=== PATIENT | female | born 1940 | race Caucasian/White ===

== ENCOUNTER → 2023-11-27 09:11 | Outpatient (REF) | payer MEDICARE, SELFPAY | LOC: RCS 09:11 | PROVIDERS: ATTENDING PHYSICIAN Internal Medicine Cardiovascular Disease; FAMILY PHYSICIAN Nurse Practitioner Primary Care | DX: I35.1 Nonrheumatic aortic (valve) insufficiency (principal) | CPT/HCPCS: 93306 ==

== ENCOUNTER → 2024-01-30 09:41 | Outpatient (REF) | payer MEDICARE, SELFPAY | LOC: RAD 09:41 | PROVIDERS: ATTENDING PHYSICIAN Internal Medicine Endocrinology, Diabetes & Metabolism; FAMILY PHYSICIAN Nurse Practitioner Primary Care | DX: E04.2 Nontoxic multinodular goiter (principal) | CPT/HCPCS: 76536 ==

== ENCOUNTER → 2024-03-05 08:50 | Outpatient (REF) | payer MEDICARE, SELFPAY ==
[2024-03-05 09:40] VITALS: BMI 26.3
[2024-03-05 10:33] LABS: Hematocrit 44.9 % (37.0-47.0); Hemoglobin 14.3 g/dL (12.0-16.0); Mean Corp Hgb Conc. 31.8 g/dL (33.0-37.0); Mean Corpuscular Hgb 25.8 pg (27.0-31.0); Platelet Count 233 10^3/uL (130-400); Red Blood Cell Count 5.54 10^6/uL (4.20-5.40); Red Cell Dist. Width 20.4 % (11.5-14.5); White Blood Cell Count 8.3 10^3/uL (4.8-10.8)
[2024-03-05 10:54] LABS: Glycohemoglobin (HgbA1c) 5.3 % (4.0-5.6)
[2024-03-05 11:15] LABS: ALT (SGPT) 37 U/L (0-35); AST (SGOT) 44 U/L (14-36); Albumin 4.2 g/dl (3.5-5.0); Alkaline Phosphatase 175 U/L (38-126); Blood Urea Nitrogen 14 mg/dl (7-17); Calcium 9.3 mg/dl (8.4-10.2); Carbon Dioxide 30 mmol/L (22-30); Chloride 95 mmol/L (98-107); Estimated Creatinine Clearance 47 ml/min; Glucose 86 mg/dl (70-99); Potassium 4.3 mmol/L (3.5-5.1); Sodium 137 mmol/L (135-145); Total Bilirubin 0.3 mg/dl (0.2-1.3); Total Protein 6.7 g/dl (6.3-8.2); eGFR > 60.00
== END ==
LOC: REG 08:50
PROVIDERS: ATTENDING PHYSICIAN Orthopaedic Surgery; FAMILY PHYSICIAN Internal Medicine Geriatric Medicine; REFERRING PHYSICIAN Internal Medicine Cardiovascular Disease
DX: I08.2 Rheumatic disorders of both aortic and tricuspid valves (principal); Z01.818 Encounter for other preprocedural examination
CPT/HCPCS: 36415; 80053; 83036; 85027; 87070

== ENCOUNTER → 2024-03-09 10:06 | Outpatient (REF) | payer MEDICARE, SELFPAY | LOC: HWRCS 10:06 | PROVIDERS: ATTENDING PHYSICIAN Internal Medicine Cardiovascular Disease; FAMILY PHYSICIAN Nurse Practitioner Primary Care | DX: I11.9 Hypertensive heart disease without heart failure (principal); I49.1 Atrial premature depolarization | CPT/HCPCS: 93306 ==

== ENCOUNTER 2024-03-30 07:15 | Day surgery (SDC) | payer MEDICARE, SELFPAY ==
[2024-03-30] VITALS (12 sets, daily range): BP systolic 104–161; BP diastolic 57–76; BMI 22.6
[2024-03-30 08:40] LABS: INR 1.28; PT 15.8 Sec (11.4-14.6)
--- NOTE | 2024-03-30 10:11 | ITS.CL.CATH ---
[facility] - Catheterization
Cardiac Catheterization
Procedure Report:
LEFT HEART CATHETERIZATION
Date of Procedure: March 30, 2024
Referring: Dr. Nadeem Valenzuela
PROCEDURES:
1. Left heart catheterization with coronary angiography
INDICATION: Symptomatic aortic stenosis
ACCESS: Right radial artery, 6 Danish sheath
HEMODYNAMICS : (mmHg)
AO (s/d) : 130/66, 94
LV (s/d) : 175/16
LVEDP : 28
AORTIC VALVE:
Mean Gradient: 40 mmHg
CORONARY FINDINGS
DOMINANCE: Right
LEFT MAIN: Calcified 50% distal left main stenosis
LEFT ANTERIOR DESCENDING: The LAD is heavily calcified over its course. The LAD arises normally from the left main and runs in the anterior interventricular groove and has minor luminal irregularities over its course with no focal obstructive
stenosis
CIRCUMFLEX: The circumflex is heavily calcified and as an acute origin from the left main. The circumflex supplies a single large terminal obtuse marginal branch and only minor irregularities are noted
RIGHT CORONARY ARTERY: The right coronary artery is a dominant vessel with an eccentric calcified 60-65% proximal stenosis. The mid to distal RCA is calcified but free of significant obstructive stenosis. The PDA is widely patent. The
posterolateral branch is small.
VENTRICULOGRAPHY: Not done
RADIATION SUMMARY: Fluoro Time (min): 3.5, Dose (mGy): 248, DAP (Gy.cm2) : 20.8
Closure Device: TR band
CONCLUSIONS
1. Severe symptomatic aortic stenosis with mean aortic valve gradient of 40 mmHg
2. Three-vessel coronary calcification with moderate distal left main and proximal RCA stenosis
RECOMMENDATIONS
1. Proceed with TAVR CT and we will discuss at an upcoming valve clinic meeting. I suspect we should proceed with TAVR as coronary anatomy has angiographically moderate / noncritical coronary disease
2. 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
Copy to: Dr. Nadeem Valenzuela
[2024-03-30] MEDS: TYLENOL 650 MG PO (10:36)
--- NOTE | 2024-03-30 13:48 | CONSULT.STRU ---
Consultation
-
Date/Time Consultation Requested: 03/30/2024
Date/Time Consultation Performed: 03/30/2024
Requesting Provider: Dr. Nadeem Agosto
Performing Provider: JENNIFER Fontenot
Reason for Consultation: Aortic stenosis/ TAVR evaluation
Patient History
Physicians
Family Physician: Genna Hutchinson NP
Outpatient Channel Sales Director: Chasidy
Primary Channel Sales Director: Chasidy
History of Present Illness
Patient is a 83yo female with known history of aortic stenosis. She is here today for cardiac catheterization as part of her evaluation process for TAVR. Her daughters state that she is 'slowing down'. 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
She is also a W[employer]. Pre-procedure discussion regarding blood and blood products will have to take place. She denies anginal symptoms, orthopnea, PND. She does note occasional LE edema. Her echocardiogram on 03/09 was notable for severe
with PG/M/43, FLACO: 0.7, Nild to moderate AI, mild MR, mild to moderate TR, EF 60-65%. Cardiac cath today demonstrates calcified 50% distal left main disease and 60-65% proximal stenosis of the RCA.
Reviewed the pathophysiology of aortic stenosis with the patient and her daughters. Explained the treatment options of SAVR and TAVR. Explained the TAVR evaluation process including follow up BMP, CT TAVR scan, CT surgery consult and Heart Team
discussion. Provided with script for BMP next week, script and appointment for CT TAVR, Consult appointment with Dr. De Luna and a copy of the TAVR education booklet with contact information. Allowed for and answered questions.
Past Medical History
Past Medical History: CAD, Cancer (Uterine), Covid-19 (01/2024), CVA/TIA (2022), GERD, HTN, Hypercholesterolemia, Hypothyroidism, Valvular Disease (Mild MR, Severe , mild-moderate AI, mild to moderate TR) and Other (seizures, DVT with h/o PE
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
Past Surgical History
Past Surgical History: Hysterectomy (w/BSO) and Other (left kidney surgery, right rotator cuff repair, bilateral lumpectomy, right knee surgery, abdominal hernia repair with mesh, left inguinal hernia with mesh)
Dental History
Dr. Montenegro in [place]. Has not seen dentist in several years. Aware she will need clearance prior to TAVR.
Family History
Mother: at Age and Cause of (unterine cancer)
Father: at Age and Cause of (CAD)
Social History
Alcohol: None
Drug: None
Tobacco: Non-Smoker
Personal:
Living: With Spouse
Allergies
Allergy/AdvReac Type Severity Reaction Status Date / Time
cortisone Allergy Severe Hives, Verified 03/30/24 08:25
constricted
throat
grass pollen Allergy Severe ear Verified 03/30/24 08:25
closing,
SOB,
congestion
penicillin G Allergy Severe Hives Verified 03/30/24 08:30
pollen extracts Allergy Severe ear Verified 03/30/24 08:30
closing,
SOB,
congestion
Sulfa (Sulfonamide Allergy Severe Unknown Verified 03/30/24 08:30
Antibiotics)
tropicamide Allergy Severe Unknown Verified 03/30/24 08:30
chamomile flower AdvReac Severe Nausea/vomi Verified 03/30/24 08:30
ting
codeine AdvReac Severe Mental Verified 03/30/24 08:31
status
change
diphenhydramine AdvReac Severe Mental Verified 03/30/24 08:30
status
change
Echinacea AdvReac Severe Nausea/vomi Verified 03/30/24 08:31
ting
epinephrine AdvReac Severe Tachycardia, Verified 03/30/24 08:30
hypotension
epin Allergy Severe effects Uncoded 03/30/24 08:28
heart
Home Medications
�Medication �Instructions �Recorded �Confirmed �Type
aspirin 81 mg tablet,delayed 81 mg PO DAILY Blood clot 09/04/20 03/30/24 History
release prevention/tx
levothyroxine 112 mcg tablet 112 mcg PO DAILY Thyroid 09/04/20 03/30/24 History
rosuvastatin 40 mg tablet (Crestor) 40 mg PO QPM High cholesterol 09/04/20 03/30/24 History
atenolol 50 mg tablet 50 mg PO QPM Heart 11/23/20 03/30/24 History
disease/condition
multivitamin with folic acid 400 1 tab PO DAILY Supplement 05/01/21 03/30/24 History
mcg tablet (Tab-A-Anjel)
warfarin 2 mg tablet (Jantoven) 2 mg PO QPM Blood clot 05/01/21 03/30/24 History
prevention/tx
cholecalciferol (vitamin D3) 50 50 mcg PO DAILY Supplement ##0 10/09/21 03/30/24 History
mcg (2,000 unit) tablet (Vitamin
D3)
pantoprazole 40 mg tablet,delayed 40 mg PO DAILY Gastrointestinal 10/09/21 03/30/24 History
release issue
potassium 99 mg tablet 99 mg PO HS Electrolyte Repletion 10/12/21 03/30/24 History
(Potassium-99)
phenytoin sodium 100 mg capsule 300 mg PO QPM 03/30/24 03/30/24 History
phenytoin sodium extended 100 mg 200 mg PO DAILY 03/30/24 03/30/24 History
capsule
STS%
STS %: 6.49%
Review of Systems
-
History Source: Patient and Family
General: Reports Fatigue
HEENT: Reports No Symptoms
Respiratory: Reports No Symptoms; Denies HERNANDEZ, Cough, Asthma or PND
Cardiac: Reports No Symptoms; Denies Edema
Abdomen/GI: Reports Reflux and Indigestion
: Reports No Symptoms; Denies Dysuria, Frequency, Incontinence or Urgency
Musculoskeletal: Reports Joint Pain (needs right knee replaced)
Skin: Reports No Symptoms
Neurological: Reports Headaches (migraines) and Seizures
Vascular: Reports No Symptoms
Physical Exam
Vital Signs
Temp 97.8 F 03/30/24 08:36
Temp route: Oral 03/30/24 08:36
Pulse 64 03/30/24 12:30
Resp Rate 16 03/30/24 10:01
Blood pressure 104/57 03/30/24 12:08
Blood pressure extremity used: Right upper arm 03/30/24 08:36
Position: Lying 03/30/24 10:01
MAP (cuff-Melissa Monitor) 73 03/30/24 12:08
SaO2 96 03/30/24 12:46
Oxygen Mode of Delivery Room air 03/30/24 10:16
Can the patient verbally communicate their pain? Yes 03/30/24 12:46
Pain scale rating: Pt states unable to rate 03/30/24 10:36
Actual Weight 52.4 kg 03/30/24 08:34
Body Mass Index (BMI) 22.6 03/30/24 08:34
Labs
PT 15.8 Sec (11.4-14.6) H 03/30/24 08:23
Diagnostic Studies
Echocardiogram 03/09/2024:
CONCLUSIONS
Normal left ventricular chamber size. Mild concentric left ventricular
hypertrophy. Normal regional wall motion. Normal left ventricular systolic
function. Left ventricular ejection fraction is 60-65% by visual estimate.
Stage II diastolic dysfunction suggestive of abnormal relaxation and increased
filling pressures.
Normal right ventricular size and function.
Severe aortic stenosis. Peak/mean gradients across the valve are 72/43 mmHg.
Mild to moderate aortic regurgitation.
Mild to moderate tricuspid regurgitation. Estimated pulmonary artery pressure
of 50 mmHg, assuming a right atrial pressure of 8 mmHg.
Compared to prior study dated 11/27/2023, prior aortic valve peak/mean gradients
were 55/30 mmHg and are now higher
Indications:
Hypertensive heart disease without heart failure
Rhythm: Sinus
Portable Study: No
Technical Quality: Good
Contrast: None
BP: 142 / 78
PROCEDURE
A complete Transthoracic Echocardiogram was performed utilizing two-dimensional
evaluation with color flow and spectral Doppler analysis.
FINDINGS
Left Ventricle
Normal left ventricular chamber size. Mild concentric left ventricular
hypertrophy. Normal regional wall motion. Normal left ventricular systolic
function. Left ventricular ejection fraction is 60-65% by visual estimate.
Stage II diastolic dysfunction suggestive of abnormal relaxation and increased
filling pressures.
Right Ventricle
Normal right ventricular size and function.
Left Atrium
Moderately dilated left atrium.
Right Atrium
Dilated right atrium.
Mitral Valve
Thickened mitral valve leaflets. Mitral annular calcification. Mitral valve
opens normally. Mild mitral regurgitation.
Aortic Valve
Trileaflet aortic valve. Thickened aortic valve with restricted leaflet motion.
Severe aortic stenosis. Peak/mean gradients across the valve are 72/43 mmHg.
Using an LVOT of 1.6 cm the calculated valve area is 0.7 cm2. DVI 0.3. Mild to
moderate aortic regurgitation.
Tricuspid Valve
Structurally normal tricuspid valve. Tricuspid valve opens normally. Mild to
moderate tricuspid regurgitation. Estimated pulmonary artery pressure of 50
mmHg, assuming a right atrial pressure of 8 mmHg.
Pulmonic Valve
Structurally normal pulmonic valve. Pulmonic valve opens normally. Trace
pulmonic regurgitation.
Pericardium\\Pleura
Normal pericardium and pleura without evidence of effusion.
Aorta
The aortic root is of normal size. The aortic arch is normal in caliber.
Other Finding
The IVC is mildly dilated, but demonstrates normal respiratory variation.
Interatrial septum is intact with no evidence of shunting by color flow
Doppler. No intracardiac mass or thrombus formation seen.
MEASUREMENTS (Male / Female) Normal Values
2D ECHO
LV Diastolic Diameter PLAX 4.0 cm 4.2 - 5.9 / 3.9 - 5.3 cm
LV Systolic Diameter PLAX 2.8 cm
IVS Diastolic Thickness 1.0 cm 0.6 - 1.0 / 0.6 - 0.9 cm
LVPW Diastolic Thickness 1.0 cm 0.6 - 1.0 / 0.6 - 0.9 cm
LV Relative Wall Thickness 0.5
LVOT Diameter 1.7 cm
LV Stroke Volume MOD 4C 40.0 cm3
LV Stroke Volume 4C AL 42.6 cm3
LA Area 4C View 21.0 cm2 <= 20 cm2
LA Length 4C 5.5 cm
LA Volume 63.0 cm3 18 - 58 / 22 - 52 cm3
M-MODE
Aortic Root Diameter MM 2.6 cm
AV Cusp Separation MM 0.5 cm
DOPPLER
AV Peak Velocity 419.0 cm/s
AV Peak Gradient 70.2 mmHg
AV Mean Gradient 42.0 mmHg
AV Velocity Time Integral 110.2 cm
AI Peak Velocity 437.7 cm/s
AI Peak Gradient 76.6 mmHg
AI Pressure Half Time 378.3 ms
LVOT Peak Velocity 138.0 cm/s
LVOT Peak Gradient 7.6 mmHg
LVOT Velocity Time Integral 33.8 cm
LVOT Stroke Volume 76.8 cm3
LVOT Stroke Volume Index 50.7 ml/m2 empty
LVOT Cardiac Index 3450.8 cm3/min
AV Area Cont Eq vti 0.7 cm2
AV Area Cont Eq pk 0.7 cm2
Mitral E Point Velocity 102.0 cm/s
Mitral A Point Velocity 73.5 cm/s
Mitral E to A Ratio 1.4
LV E' Lateral Velocity 6.9 cm/s
Mitral E to LV E' Lateral Ratio 14.8
LV E' Septal Velocity 8.4 cm/s
Mitral E to LV E' Septal Ratio 12.1
TR Peak Velocity 303.0 cm/s
TR Peak Gradient 36.7 mmHg
Cardiac Catheterization 03/30/2024:
HEMODYNAMICS : (mmHg)
AO (s/d) : 130/66, 94
LV (s/d) : 175/16
LVEDP : 28
AORTIC VALVE:
Mean Gradient: 40 mmHg
CORONARY FINDINGS
DOMINANCE: Right
LEFT MAIN: Calcified 50% distal left main stenosis
LEFT ANTERIOR DESCENDING: The LAD is heavily calcified over its course. The LAD arises normally from the left main and runs in the anterior interventricular groove and has minor luminal irregularities over its course with no focal obstructive
stenosis
CIRCUMFLEX: The circumflex is heavily calcified and as an acute origin from the left main. The circumflex supplies a single large terminal obtuse marginal branch and only minor irregularities are noted
RIGHT CORONARY ARTERY: The right coronary artery is a dominant vessel with an eccentric calcified 60-65% proximal stenosis. The mid to distal RCA is calcified but free of significant obstructive stenosis. The PDA is widely patent. The
posterolateral branch is small.
VENTRICULOGRAPHY: Not done
RADIATION SUMMARY: Fluoro Time (min): 3.5, Dose (mGy): 248, DAP (Gy.cm2) : 20.8
Closure Device: TR band
CONCLUSIONS
1. Severe symptomatic aortic stenosis with mean aortic valve gradient of 40 mmHg
2. Three-vessel coronary calcification with moderate distal left main and proximal RCA stenosis
RECOMMENDATIONS
1. Proceed with TAVR CT and we will discuss at an upcoming valve clinic meeting. I suspect we should proceed with TAVR as coronary anatomy has angiographically moderate / noncritical coronary disease
2. Patient is a Religious and would refuse blood products
Exam
General: Well Developed, No Apparent Distress, Comfortable and Other (frail)
HEENT: Normocephalic, Moist Mucous Membranes, PERRLA and EOMI
Neck: Trachea Midline
Respiratory: Clear; Negative Wheezes, Crackles or Rhonchi
Cardiac: S1/S2, Regular Rhythm and Murmur (Grade III/ systolic)
GI: Soft, Non Tender, Non Distended and Normal Bowel Sounds
Rectal: Deferred by Provider
Skin: Warm and Dry
Neuro: Awake, AO x 3, No Motor Deficits and Nonfocal/Grossly Intact
Extremities: Pulses (+2 pedal pulses); Negative Lower Level Edema
Psych: Calm
Assessment / Plan
-
Procedure Type:�Isolated AVR
PERIOPERATIVE OUTCOME ESTIMATE %
Operative Mortality 6.49%
Morbidity & Mortality 13.4%
Stroke 2.49%
Renal Failure 0.863%
Reoperation 4.26%
Prolonged Ventilation 6.56%
Deep Sternal Wound Infection 0.034%
Long Hospital Stay (>14 days) 6.98%
Short Hospital Stay (<6 days)* 29.3%
Procedure Type:�CABG + AVR
PERIOPERATIVE OUTCOME ESTIMATE %
Operative Mortality 8.1%
Morbidity & Mortality 17.4%
Stroke 3.96%
Renal Failure 2.88%
Reoperation 3.28%
Prolonged Ventilation 10.7%
Deep Sternal Wound Infection 0.079%
Long Hospital Stay (>14 days) 10.8%
Short Hospital Stay (<6 days)* 13.2%
Severe Aortic stenosis:
����������� Continue evaluation for TAVR
����������� BMP 04/06/2024 at [facility]
����������� CT TAVR scan 04/12/2024 at
����������� CT surgery consult with Dr. De Luna 04/20/2024
Dental clearance
����������� Heart team discussion at [facility]
Data Reviewed
-
EKG: Report Reviewed by me
Log Chain Worker: Report Reviewed by me and Discussed with Physician
Echo: Report Reviewed by me and Discussed with Physician
Labs: Labs Reviewed by me
Old Records: Reviewed (Cardiology office notes)
Total Time Spent with Patient (in minutes): 30
== END 2024-03-30 13:10 | disposition home or self-care (01) ==
LOC: CATH 07:15
PROVIDERS: ATTENDING PHYSICIAN Internal Medicine Interventional Cardiology
DX: I08.2 Rheumatic disorders of both aortic and tricuspid valves (principal); I25.10 Atherosclerotic heart disease of native coronary artery without angina pectoris; I11.9 Hypertensive heart disease without heart failure; E03.9 Hypothyroidism, unspecified; E78.00 Pure hypercholesterolemia, unspecified; Z86.711 Personal history of pulmonary embolism; Z86.73 Personal history of transient ischemic attack (TIA), and cerebral infarction without residual deficits; Z82.49 Family history of ischemic heart disease and other diseases of the circulatory system; Z79.01 Long term (current) use of anticoagulants; Z79.82 Long term (current) use of aspirin
CPT/HCPCS: 85610; 93458; C1894; Q9967

== ENCOUNTER → 2024-04-12 09:06 | Outpatient (REF) | payer MEDICARE, SELFPAY | LOC: RAD 09:06 | PROVIDERS: ATTENDING PHYSICIAN Nurse Practitioner Adult Health; FAMILY PHYSICIAN Nurse Practitioner Primary Care; REFERRING PHYSICIAN Internal Medicine Geriatric Medicine | DX: I35.0 Nonrheumatic aortic (valve) stenosis (principal) | CPT/HCPCS: 74174; 75572; Q9967 ==

== ENCOUNTER 2024-10-21 09:00 | Inpatient (IN) | payer MEDICARE, SELFPAY ==
--- NOTE | 2024-10-15 11:38 | HPS.HSE ---
Family Physician
-
Family Physician: Genna Hutchinson
Cardiology: Tyler Valenzuela
Chief Complaint
-
Aortic Stenosis/ Pre-operative H&P
History of Present Illness
Patient is a 83yo female with known history of aortic stenosis. Her daughters state that she is 'slowing down'. 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 She is also a [employer]. On consent she has chosen not to receive blood products.
She denies anginal symptoms, orthopnea, PND. She does note occasional LE edema. Her echocardiogram on 03/09 was notable for severe with PG/M/43, FLACO: 0.7, mild to moderate AI, mild MR, mild to moderate TR, EF 60-65%. Cardiac cath on
03/30/2024 demonstrated calcified 50% distal left main disease and 60-65% proximal stenosis of the RCA. Her treatment was delayed for many reasons including needing dental extractions and her daughter having surgery. She is ready to move forward now
with the TAVR procedure. It was discussed at the [facility] meeting and the decision was made since no angina, her cardiac cath would not need to be repeated. Reviewed the risks of TAVR including PPM, bleeding and stroke. Allowed for and answered
questions.
Patient with history of CVA. On warfarin for h/o DVT/PE and hypercoagulable state. Discussed plan with Dr. Smith for management of anticoagulation prior to procedure:
1. Last dose of warfarin is tonight, 10/15
2. Take 324mg Aspirin tomorrow then 81mg daily including morning of TAVR
3. Repeat INR to confirm below 2 on 10/18 (prescription for stat INR given. Patient goes to [facility])
4. Pending INR , will begin Lovenox. Will hold Lovenox morning of TAVR. Patient has Lovenox at home from when she was to have TKR. Will call with exact dose to confirm appropriate treatment.
5. Patient will also take her Levothyroxine and Dilantin the morning of TAVR
6. Patient has allergy to contrast listed as well as Benadryl and Cortisone. After cardiac cath and CT scan she had some mild GI upset from the contrast. Cortisone allergy is severe hives.
Medical History
Past Medical History
Past Medical History: Reports Other (CAD, Cancer (Uterine), Covid-19 (01/2024), CVA/TIA (2022), GERD, HTN, Hypercholesterolemia, Hypothyroidism, Valvular Disease (Mild MR, Severe , mild-moderate AI, mild to moderate TR) ,seizures, DVT with h/o PE
(warfarin), hiatal hernia, migraines, fibromyalgia, esophagitis, OA, thyroid no)
Past Surgical History: Reports Other (Hysterectomy (w/BSO) ,left kidney surgery, right rotator cuff repair, bilateral lumpectomy, right knee surgery, abdominal hernia repair with mesh, left inguinal hernia with mesh), dental extractions)
Social History
Tobacco: Non-smoker
Alcohol: None
Drug: None
Personal:
Living: With Family
Family History
Family History: Not pertinent
Allergies / Home Medications
Allergies reflects when Allergies were last updated in [facility].
Home Medications with original date entered in [facility]
Allergy/Medication List:
Allergies:
Codeine: nausea
Epinephrine: syncope
Hydrocortisone: CORTIZONE-10,hives
Penicillin: hives
Benadryl: jittery
Cefuroxime: rash
hydroCHLOROthiazide: hyponatremia
contrast dye: GI upset, balance
Medications:
Acetaminophen 500 MG Tablet 1 tablet as needed Orally every 6 hrs ,prn
Atenolol 50 MG Tablet 1 tablet Orally Once a day
Biofreeze ,PRN
Cefuroxime Axetil 500 MG Tablet 1 tablet Orally every 12 hrs
Co Q 10 100 MG Capsule 2 capsules Orally Once a Day ,PRN
Estradiol 0.1 MG/GM Cream insert 1 gram Vaginal Two times a Week
Furosemide 20 MG Tablet 1 tablet Orally Once a day (edema/fluid build up)
Gas Relief(Simethicone) 80 MG Tablet Chewable 1 tablet after meals and at bedtime as needed Orally Four times a day , prn
Levothyroxine Sodium 112 MCG Tablet 1 tablet in the morning on an empty stomach Orally Once a day
Meclizine HCl 12.5 MG Tablet 1 tablet as needed for vertigo Orally Every 8 Hours , as needed
Multi For Her(Multiple Vitamins-Minerals) - Tablet as directed Orally
Pantoprazole Sodium 40 MG Tablet Delayed Release TAKE 1 TABLET BY MOUTH EVERY DAY 30 MINUTES BEFORE BREAKFAST As needed
Phenytoin Sodium Extended 100 MG Capsule TAKE 2 CAPSULES EVERY MORNING AND 3 CAPSULES BY MOUTH EVERY EVENING
Potassium 99 MG Tablet 1 tablet Orally Once a day
Rosuvastatin Calcium 40 MG Tablet 1 tablet Orally Once a day
Valsartan 80 MG Tablet 1 tablet Orally Once a day
Vitamin D3 50 MCG (2000 UT) Tablet 1 tablet Orally Once a day
Warfarin Sodium 2 MG Tablet 2 tablets on friday/friday and 1 tablet all other days of the week Orally Once a day
Review of Systems
-
History Source: Patient
Constitutional: Reports No Symptoms
EENT: Reports Other (recent sinus infection)
Respiratory: Reports Cough (mild but relates to recent sinus infection)
Cardiac: Reports Other (2 pillow orthopnea and occasional PND)
Abdomen/GI: Reports Abdominal Pain (left side where hernia was)
: Reports No Symptoms; Denies Dysuria, Frequency or Urgency
Musculoskeletal: Reports Joint Pain (Right knee. Needs a TKR)
Skin: Reports No Symptoms
Neurological: Reports Other (h/o stroke and seizures)
Endocrine: Reports No Symptoms
Hematologic/Lymphatic: Reports Other (h/o DVT, PE)
Psych: Reports No Symptoms
Physical Exam
Physical Exam
General: Well Developed, No Apparent Distress and Comfortable
HEENT: NormoCephalic, Moist mucous membranes and PERRLA
Respiratory: Clear; No Wheezes, Rales or Rhonchi
Cardiac: S1/S2, Regular Rhythm and Murmur (Grade III/ HENNY); No Peripheral Edema
Breast: Deferred by me
GI: Soft, Non Tender, Non Distended and Normal Bowel Sounds
Rectal: Deferred by Provider
Genito-urinary: Deferred by me
Musculoskeletal: No Edema
Skin: Warm and Dry
Neuro: AO x 3 and Nonfocal/grossly intact
Psych: Calm
Data Reviewed
-
Diagnostic Radiology: Report Reviewed by me
CT Scan: Report Reviewed by me and Discussed with Physician
Lab Data: Labs Reviewed by me
Old Records: Reviewed (prior consult notes)
Impression/Plan
-
IMPRESSION:
Severe aortic stenosis
PLAN:
- TF TAVR utilizing a 23mm Evolut FX+
- POD #1/#30 Echocardiogram
- Cardiac rehab consult
- Resume Coumadin, bridge with Lovenox until therapeutic due to high stroke risk
Lab Results
-
Lab Results
WBC 7.3 10^3/uL (4.8-10.8) 10/15/24 12:06
RBC 5.83 10^6/uL (4.20-5.40) H 10/15/24 12:06
Hgb 14.9 g/dL (12.0-16.0) 10/15/24 12:06
Hct 46.7 % (37.0-47.0) 10/15/24 12:06
MCV 82.0 fL (81.0-99.0) 10/15/24 12:06
MCH 25.6 pg (27.0-31.0) L 10/15/24 12:06
MCHC 31.2 g/dL (33.0-37.0) L 10/15/24 12:06
RDW 21.8 % (11.5-14.5) H 10/15/24 12:06
Plt Count 234 10^3/uL (130-400) 10/15/24 12:06
MPV Not Reportable 10/15/24 12:06
Abs Immat Gran (auto) 0.1 10^3/uL (0-0.05) H 10/15/24 12:06
Absolute Neuts (auto) 5.5 10^3/uL (1.4-6.5) 10/15/24 12:06
Absolute Lymphs (auto) 0.9 10^3/uL (1.2-3.4) L 10/15/24 12:06
Absolute Monos (auto) 0.4 10^3/uL (0.1-0.6) 10/15/24 12:06
Absolute Eos (auto) 0.4 10^3/uL (0-0.7) 10/15/24 12:06
Absolute Basos (auto) 0.1 10^3/uL (0-0.2) 10/15/24 12:06
Immature Gran % 1.2 % (0-0.5) H 10/15/24 12:06
Neutrophils % 75.2 % (42.2-75.2) 10/15/24 12:06
Lymphocytes % 11.4 % (20.5-51.1) L 10/15/24 12:06
Monocytes % 5.0 % (1.7-9.3) 10/15/24 12:06
Eosinophils % 6.2 % (0-6) H 10/15/24 12:06
Basophils % 1.2 % (0-2) 10/15/24 12:06
Nucleated RBC % 0 % 10/15/24 12:06
PT 25.7 Sec (11.4-14.6) H 10/15/24 12:06
INR 2.34 10/15/24 12:06
APTT 41.7 Sec (23.4-35.0) H 10/15/24 12:06
Sodium 141 mmol/L (135-145) 10/15/24 12:06
Potassium 4.4 mmol/L (3.5-5.1) 10/15/24 12:06
Chloride 103 mmol/L (98-107) 10/15/24 12:06
Carbon Dioxide 35 mmol/L (22-30) H 10/15/24 12:06
BUN 16 mg/dl (7-17) 10/15/24 12:06
Creatinine 0.6 mg/dL (0.6-1.0) 10/15/24 12:06
Estimated Creat Clear 50 ml/min 10/15/24 12:06
eGFR > 60.00 10/15/24 12:06
Glucose 78 mg/dl (70-99) 10/15/24 12:06
Calcium 9.4 mg/dl (8.4-10.2) 10/15/24 12:06
Total Bilirubin 0.4 mg/dl (0.2-1.3) 10/15/24 12:06
Direct Bilirubin 0.0 mg/dl (0.0-0.4) 10/15/24 12:06
AST 57 U/L (14-36) H 10/15/24 12:06
ALT 70 U/L (0-35) H 10/15/24 12:06
Alkaline Phosphatase 152 U/L (38-126) H 10/15/24 12:06
Total Protein 7.2 g/dl (6.3-8.2) 10/15/24 12:06
Albumin 4.4 g/dl (3.5-5.0) 10/15/24 12:06
Urine Color Yellow 10/15/24 12:23
Urine Clarity Clear (Clear) 10/15/24 12:23
Urine pH 6.0 (5.0-9.0) 10/15/24 12:23
Ur Specific [place] 1.015 (<1.030) 10/15/24 12:23
Urine Ketones Negative (Negative) 10/15/24 12:23
Ur Occult Blood Reflex 1+ (Negative) A 10/15/24 12:23
Urine Nitrite (Reflex) Negative (Negative) 10/15/24 12:23
Urine Bilirubin Negative (Negative) 10/15/24 12:23
Urine Urobilinogen Negative (Neg - 1+) 10/15/24 12:23
Leukocyte Esterase Rfl 3+ (Negative) A 10/15/24 12:23
Urine Glucose Negative (Negative) 10/15/24 12:23
Urine Albumin (Reflex) 3+ (Neg - Trace) A 10/15/24 12:23
Blood Type A POS 10/15/24 12:06
Antibody Screen Negative (Negative) 10/15/24 12:06
[2024-10-15 11:51] VITALS: BMI 24.7
[2024-10-15 12:46] LABS: % Basophils 1.2 % (0-2); % Eosinophils 6.2 % (0-6); % Immature Granulocytes 1.2 % (0-0.5); % Lymphocytes 11.4 % (20.5-51.1); % Neutrophils 75.2 % (42.2-75.2); Absolute Basophils 0.1 10^3/uL (0-0.2); Absolute Eosinophils 0.4 10^3/uL (0-0.7); Absolute Immature Granulocytes 0.1 10^3/uL (0-0.05); Absolute Lymphocytes 0.9 10^3/uL (1.2-3.4); Absolute Monocytes 0.4 10^3/uL (0.1-0.6); Absolute Neutrophils 5.5 10^3/uL (1.4-6.5); Hematocrit 46.7 % (37.0-47.0); Hemoglobin 14.9 g/dL (12.0-16.0); Mean Corp Hgb Conc. 31.2 g/dL (33.0-37.0); Mean Corpuscular Hgb 25.6 pg (27.0-31.0); Nucleated Red Blood Cells % 0 %; Platelet Count 234 10^3/uL (130-400); Red Blood Cell Count 5.83 10^6/uL (4.20-5.40); Red Cell Dist. Width 21.8 % (11.5-14.5); White Blood Cell Count 7.3 10^3/uL (4.8-10.8)
[2024-10-15 12:51] LABS: INR 2.34; PT 25.7 Sec (11.4-14.6)
[2024-10-15 12:52] LABS: APTT 41.7 Sec (23.4-35.0)
[2024-10-15 12:57] LABS: Urine Albumin 3+ (Neg - Trace); Urine Bilirubin Negative (Negative); Urine Character Clear (Clear); Urine Color Yellow; Urine Glucose Negative (Negative); Urine Ketone Negative (Negative); Urine Leukocyte 3+ (Negative); Urine Nitrite Negative (Negative); Urine Occult Blood 1+ (Negative); Urine Specific Gravity 1.015 (<1.030); Urine Urobilinogen Negative (Neg - 1+)
[2024-10-15 13:47] LABS: ALT (SGPT) 70 U/L (0-35); AST (SGOT) 57 U/L (14-36); Albumin 4.4 g/dl (3.5-5.0); Alkaline Phosphatase 152 U/L (38-126); Blood Urea Nitrogen 16 mg/dl (7-17); Calcium 9.4 mg/dl (8.4-10.2); Carbon Dioxide 35 mmol/L (22-30); Chloride 103 mmol/L (98-107); Estimated Creatinine Clearance 50 ml/min; Glucose 78 mg/dl (70-99); Potassium 4.4 mmol/L (3.5-5.1); Sodium 141 mmol/L (135-145); Total Bilirubin 0.4 mg/dl (0.2-1.3); Total Protein 7.2 g/dl (6.3-8.2); eGFR > 60.00
[2024-10-15 13:56] LABS: NT-proBNP 1500 pg/ml
[2024-10-15 14:33] LABS: Glycohemoglobin (HgbA1c) 5.4 % (4.0-5.6)
--- NOTE | 2024-10-15 14:45 | CM ---
Met with Mrs.. Mooney and her daughter in [facility]. She states prior to admission she resides with her spouse and nephew in a one story home with five steps to enter. She states she is the caregiver for her spouse and nephew. She states prior to
admission she ambulates in the home but holding on the the frausto and furniture. She states she has a walker at home. She states she has a prescription plan and uses [facility]. She states she has two daughters that reside nearby and can
check on her. The discharge plan is to return home with her spouse and nephew and a home visit by the Transitional Care Nurse when medically stable.
We reviewed pre-op and post-op routines. We reviewed the shower instructions. She has the soap, written instructions and the TAVR Educational Booklet. We reviewed restrictions including lifting and driving restrictions. We also discussed a home
visit by the Transitional Care Nurse. She is agreeable to a home visit. The plan is for TAVR on September.
[2024-10-15 15:55] LABS: Urine Squamous Cell >30 /LPF (Few)
[2024-10-15 15:57] LABS: Urine White Cell 26-30 /HPF (0-5)
[2024-10-15 15:58] LABS: Urine Bacteria Few (Negative)
[2024-10-21] VITALS (20 sets, daily range): BP systolic 14–163; BP diastolic 51–96; BMI 23.6
--- NOTE | 2024-10-21 09:24 | W.CVOR.SURPR ---
CVOR Surgeon Immed Pre Op
-
I have examined this patient prior to performance of the scheduled procedure.
The patient's condition is unchanged from the time of the dictated/written History and
Physical and the patient is able to undergo the scheduled procedure.
TF TAVR
Full Rescue
[2024-10-21 09:57] LABS: INR 1.05; PT 14.3 Sec (11.4-14.6)
[2024-10-21 11:29] LABS: ACT-LR - POC 237 Seconds (116-155)
--- NOTE | 2024-10-21 12:00 | W.PN.CT.SURG ---
CT Surgery Operative Note
-
OPERATIVE REPORT
Preoperative Diagnosis: Severe aortic valve stenosis, symptomatic
Postoperative Diagnosis: Same
Procedure(s) Performed: Right trans femoral TAVR with a 23 mm Medtronic Evolut FX + device
Date of Procedure: 10/19/2024
Comorbidities:
1. Severe symptomatic aortic stenosis
2. Orthodoxy
3. Diverticulitis
4. Hypertension
5. Hyperlipidemia
6. SIADH
7. History of seizures
8. CVA
9. CAD
10. Spina bifida
11. Migraines
Cardiac Surgeon: Oni Bird MD, MS
Eggs Inspector: Pola Agosto MD
Anesthesia: Conscious Sedation, Local
EBL: 100cc
Products: none
Implant: Medtronic Evolut 23mm FX + SN: [id number]
Indication(s) for Procedures: 83-year-old female with severe aortic stenosis. Symptomatic. CT-TAVR protocol revealed acceptable anatomy for a self-expanding TAVR valve.
Start time: 1055hrs
Deployment time: 1132hrs
End time: 1152hrs
Radiation Dose (mGy): 583.17
DAP (cm2.Gy): 46.4752
Fluoroscopy time (minutes): 11.5
Contrast volume (ml): 187
TAVR gradient (mmHg): 9-10mmHg
Heparin Dose: 4500+2000units
Protamine Dose: 0mg
Final Valve Positioninmm:1mm
Recapture: 1 x
Findings: Preoperative LVEF was 65% and was 65% following TAVR without inotropic support. Function was overall normal without regional wall motion abnormalities or dyskinesia. The aortic valve was well seated with only trace PVL. The patient did not
require pacing postoperative and was in sinus rhythm. There was successful placement of 23 mm Evolut FX+ TAVR valve without acute complications.
Access:
1. Device -right common femoral artery, perclose x 2
2. Pigtail -left common femoral artery + 6Fr angioseal
3. Transvenous Pacer -left common femoral vein
Description of Procedure: The patient was taken to the cardiac cath technician. Their identity and procedure to be performed were verified and they were positioned supine on the cardiac cath technician table. Induction via conscious sedation with local analgesia. The patient was
then prepped and draped from chin to thigh in a sterile fashion. A preoperative time-out was performed with all members of the team present. Using fluoroscopy, bilateral femoral heads and their margins were identified. Arterial and venous access
were done with a micropuncture needle with Seldinger technique. Test pacing revealed capture with excellent threshold. Angiography confirmed proper puncture site and femoral artery integrity. Two Per-Close devices were used on the TAVR side. An AL1
catheter was used to deliver a extrastiff wire and insertion of the working sheath. An AL1 catheter with a straight stiff wire was used to access the LV. This was then exchanged for a J-wire and subsequently a pigtail catheter where an LVEDP was
then measured and found to be low. Next the Lunderquist wire was delivered to the LV via the pigtail catheter. The valve was prepped and mounted on to the device carrier. An ACT of >250 was achieved. We verified x 3 under fluoroscopy that the
valve was mounted correctly with paddles in appropriate position. We than set our parameters to achieve a co-planar view with the pigtail positioned in the NCC. We advanced the device with it's in-line sheath into the descending thoracic aorta and
over the arch into the root and positioned across the aortic valve. Contrast fluoroscopy was used to visualize the prosthesis across the valve. We performed a quick pre-deployment time out. We verified positioning based on the pigtail and gentle
contrast puffs. The valve was slowly deployed to just before annular contact. We paused here and verified positioning in our cusp overlap view. We then rotated AZERI and removed any parallax from the valve. Contrast was used to verify the LCC was
appropriate in height. It was and so we slowly continued to deploy the valve until the crowns and paddles were free from the device. At this point the valve was functioning and pacing was stopped. We slowly continued to deploy the valve until the
crowns and paddles were free from the device. The deployment device was withdrawn into the descending thoracic aorta while maintaining wire access across the valve. A transthoracic echocardiogram was performed . The pigtail was re-positioned at the
level of the crown of the valve and angiography revealed excellent placement and seating of the valve at the annulus. The device was removed from the groin as we cinched down the perclose devices while maintaining wire access. There was acceptable
hemostasis. The pigtail was repositioned into the descending/abdominal and runoff aortogram was performed. There was no significant stenosis or dissection of the bilateral iliofemoral systems with excellent runoff to the SFAs. All wires were removed
and perclose snugged and cut. There was acceptable hemostasis of bilateral groins.
All instrument, sponge, and needle counts were confirmed to be correct x 2 at the end of the operation. The patient was transferred to the cardiac intensive care unit in stable condition.
I, Dr. Oni Bird, was present, scrubbed for, and performed all critical elements of this procedure.
Oni Bird MD, MS
Cardiothoracic Surgeon
[facility]
This operative dictation was created using the Drippler dictation system. Please excuse any grammatical, typographical, or 'sound alike' errors
--- NOTE | 2024-10-21 12:03 | ITS.CL.CATH ---
Cadd Drafter - Catheterization
Cardiac Catheterization
Procedure Report:
TRANSCATHETER AORTIC VALVE REPLACEMENT
Date of Procedure: October 21, 2024
Referring: Dr. Nadeem Valenzuela
Operators: Drs. Nadeem Agosto and Oni Bird
PROCEDURE PERFORMED:
1. Ultrasound guidance for vascular access in the left common femoral artery, left common femoral vein, and right common femoral artery
2. Successful placement of 23 mm Medtronic Evolut Pro+ valve via right femoral artery.
PREPROCEDURE NYHA CLASS: 3
DESCRIPTION OF PROCEDURE: The patient was referred for assessment of severe symptomatic aortic stenosis and following a comprehensive evaluation it was felt that transcatheter aortic valve replacement (TAVR) would be the most appropriate treatment.
Informed consent was obtained prior to the procedure. A 'time-out' was called and the procedural plan was verbally confirmed by anesthesia, surgery, perfusion, and laboratory assistant staff.
Arterial and venous access were obtained in the left common femoral artery and vein using ultrasound guidance and micropuncture technique. Images were stored in the permanent medical record. 6 Fr. sheaths were inserted. Ultrasound guidance was
then used to obtain arterial access in the right common femoral artery using micropuncture technique and a 6 Fr. sheath was inserted. Angiography was performed and both the left and right femoral arteriotomy sites appeared appropriately positioned
for preclosure using two Perclose devices and a 6 Fr Angio-Seal on the left.
A 5 Fr. transvenous pacing wire was then advanced from the left femoral vein to the right ventricle where excellent pacing thresholds were obtained. A 5 Fr. pigtail catheter was then advanced to the proximal ascending aorta / noncoronary cusp where
angiography was performed to define the the cusp overlap view isolating the non-coronary cusp with overlap of the right and left coronary cusps. The cusp overlap view was RAO11 / CAU 28.
Attention was then turned back to the right common femoral arteriotomy site. A J-wire was advanced to the proximal descending thoracic aorta. The 6 Serbian sheath was removed and preclosure of the arteriotomy site was performed using 2 Perclose
devices. An 8 Serbian sheath was then advanced over the wire and into the right common femoral arteriotomy access site. A Double-curve Lunderquist 0.035' wire was advanced through an AL1 diagnostic catheter and positioned in the proximal descending
thoracic aorta. The right common femoral arteriotomy tract was dilated and followed by placement of a 14 Fr / 13 cm Cook sheath.
Intravenous heparin was administered and the ACT was monitored during the procedure.
An AL1 catheter was then advanced over the Double-curve Lunderquist wire which was allowed to drift across the aortic arch. The AL1 catheter was positioned above the aortic valve. The Lunderquist wire was removed and the stenotic aortic valve was
crossed using a 0.035' Straight tip wire. The AL1 was then advanced to the mid left ventricle where the LVEDP measured 20 mmHg. A long J-wire was advanced to the left ventricular apex and was followed to the apex with an angled pig-tail catheter.
The Double Curve Lunderquist was then advanced through the pigtail catheter and to the left ventricular apex.
The Evolut Pro+ stent was inspected under fluoroscopy/cine while rotating the stent delivery system. The stent paddles were within the pocket and no significant crown overlap noted.
The 14 Fr Cook sheath was removed and a 23 mm Evolut Pro+ stent was advanced across the stenotic leaflets. The Evolut Pro+ valve was slowly deployed in the leaflet overlap view until the stent flared achieving contact at 1mm below the noncoronary
cusp. The stent continued to flared achieving contact with the left coronary cusp. The image intensifier was rotated to an CHINESE position to remove parallax from the valve with continued valve deployment with controlled pacing. We transitioned
quickly through the rumble strips on the Evolut delivery system until the marker band was positioned just below the paddle attachment. Angiography was performed. The valve depth appeared too shallow and the decision was made to recapture the Evolut
valve and advance slightly. The valve was recaptured and advanced ventricularly by 1-2 mm. We again transitioned quickly through the rumble strips and the pacing rate was reduced to 100 bpm. Angiography was performed in RIVAS and CHINESE angles. The
valve appeared to be 2-3 mm below the noncoronary cusp and 2 mm below the left coronary cusp. The valve structure was slowly released from the delivery system. Both paddles were simultaneously released from the delivery system. The Lunderquist
wire was retracted to the delivery system nosecone and the Evolut Pro+ delivery system was retracted across the functioning valve. The delivery system was reunited in the proximal descending thoracic aorta. The post valve deployment transthoracic
echocardiogram was notable for no aortic insufficiency and the mean gradient measured between 9-10 mmHg.
The Evolut delivery system was was removed and the Perclose knots were advanced to the arteriotomy site resulting in excellent hemostasis. A 6 Serbian Angio-Seal was utilized to close the left common femoral arteriotomy site with good hemostasis.
Manual pressure was held. Protamine was not administered given the patient's thrombotic history and lupus anticoagulant
Fluoro Time (min): 3.5, Dose (mGy): 248, DAP (Gy.cm2) : 20.8
CONCLUSIONS:
1. Severe symptomatic aortic stenosis. Successful deployment of a 23 mm Evolut Pro+ valve with minimal aortic insufficiency post procedure
2. Successful arteriotomy closure with 2 Perclose devices and 6 Serbian Angio-Seal.
Copy to: Dr. Nadeem Valenzuela
--- NOTE | 2024-10-21 12:16 | CM ---
Reviewed chart. Mrs. Mooney is in the operating room... Prior to admission she resides with her spouse and nephew in a one story home with five steps to enter. She is the caregiver for her spouse and nephew. Prior to admission she ambulates in the
home with holding on to frausto and furniture. She does have a walker. She has a prescription plan and uses [facility]. She has had [facility] in the past and if she needs VNA Services she would like to use [facility]. She has two
daughters who reside locally who will be able to check on her when she goes home. Medical work-up in progress. The discharge plan is to return home with her spouse and nephew with a home visit by the Transitional Care Nurse when medically stable.
[2024-10-21 12:18] LABS: ACT-LR - POC > 397 Seconds (116-155)
--- NOTE | 2024-10-21 13:30 | PTCARENOTE ---
received patient from label maker to room 2256- pt AAOX3, resting comfortably in bed. SR on telemetry heart rate in 60s. pulses easily palpable. pt on room air, sat 95%. lung sounds clear. active bowel sounds. pt voiding on bed porter. Right groin site
with small amount of drainage noted. left groin site CDI. bruising noted on abdomen from lovenox injections. pt updated on plan of care. daughters brought to bedside.
[2024-10-21 14:16] LABS: ACT-LR - POC 160 Seconds (116-155)
--- NOTE | 2024-10-21 15:00 | PTCARENOTE ---
pt with slow oozing from right groin site- notified IMANI Justin, pathology laboratory aides teacher RN at bedside to hold pressure x 20 minutes- new dressing in place CDI. pt with mild pain at right groin/right abdomen.
[2024-10-21] MEDS: CRESTOR 40 MG PO (17:42)
[2024-10-21] MEDS: ANCEF 10 IV ×2 (17:42)
[2024-10-21] MEDS: TYLENOL 650 MG PO (18:07)
[2024-10-21] MEDS: ANCEF 5 IV (20:28)
[2024-10-21] MEDS: DILANTIN 300 MG PO (21:03)
[2024-10-21] MEDS: MYLICON 160 MG PO (21:03)
--- NOTE | 2024-10-21 21:14 | PTCARENOTE ---
received patient at the change of shift. AAOx3. ambulated to the bathroom-steady on her feet. denies any lightheadedness/dizziness. small BM per patient. complaining of 'gas pain.' Maik DIALLO aware- Mylicon ordered and given, see jul. SR on tele
70s. bp stable. neuro intact. R groin ecchymotic-dressing CDI. tender to touch per patient- improved per patient. L groin old drainage noted-marked. soft. strong DP pulses. denies any cp/sob. reviewed plan of care with patient and verbalized
understanding. call florentino within reach. makes needs known.
patient requesting INR lab draw in the morning. 'I want to know before i go home.' Maik DIALLO notified. no orders for labs at this time.
[2024-10-21] MEDS: PEPCID 20 MG IV (23:46)
[2024-10-21] MEDS: TYLENOL 1000 MG PO (23:47)
[2024-10-21] MEDS: NSS (PRESERVATIVE FREE) 8 ML IV (23:47)
--- NOTE | 2024-10-21 23:53 | W.PN.UPDATE ---
Update Note
Progress Note Update
-came in @ 11:20 pm to radha pt for c/o abdominal pain. It started after having dinner. Pt says that pain was very severe and she 'almost passed out from pain' in the bathroom earlier. It felt better after having BM, getting Tylenol and Simethicone.
Denies nausea or vomiting or chest pain. Has chronic back pain from spina bifida and R hip and knee pain. However, abdominal pain returned. Small amount of oozing noted on R groin dressing. ? small area of hardness under the umbilicus, well
localized at the area of her tenderness - ? if small hematoma from preop Lovenox injections. Pre-existing bruising noted at the site of the Lovenox injections at R abdomen. Hemodynamically stable, BP 137/75 in nsr 72 bpm. No hypotension or
tachycardia. Acute bleed is unlikely. Of note, she is Jainism and we're trying to minimize blood draws.
-held 20 min manual pressure over R groin, redressed. Will try 1000 Tylenol and 20 iv Pepcid for abdominal pain and monitor closely.
[2024-10-22] VITALS (7 sets, daily range): BP systolic 126–154; BP diastolic 69–90; BMI 23.8
--- NOTE | 2024-10-22 00:10 | PTCARENOTE ---
Addendum entered by Wallace Leong RN 10/22/24 01:03:
patient states feeling much better now. denies any abdominal pain. only complaint is 'antsy legs', which is her baseline per patient. Right groin site clean and dry. soft. + pulses. call florentino within reach. educated patient to call with any changes.
Original Note:
during rounds, patient complained of abdominal pain. oozing noted on R groin dressing-marked. Right to middle abdomen, under belly button, and R groin site tender to touch. patient states Rt abdomen tenderness could be related to Lovenox injections
that she was giving herself at home-ecchymotic. small firm area under belly button noted as well-marked. updated Maik CV PA and at bedside. manual pressure of 20 minutes held on R groin by PA- new dressing placed. 20 Iv Pepcid and 1000 mg of
Tylenol given as a verbal and given to patient, see mar. HR SR 70s. bp 137/75. neuro intact. no change to Left groin site. + pulses.
--- NOTE | 2024-10-22 03:10 | PTCARENOTE ---
patient resting in bed comfortably. neuro intact. patient states 06/11 abdominal pain; 'so much better.' b/l groins intact-unchanged. SR overnight. at approx 0255- 14 beat burst of SVT noted. asymptomatic. bp 154/83.
[2024-10-22 03:12] LABS: Mean Corp Hgb Conc. 31.7 g/dL (33.0-37.0); Mean Corpuscular Hgb 26.3 pg (27.0-31.0); Mean Corpuscular Volume 82.8 fL (81.0-99.0); Platelet Count 192 10^3/uL (130-400); Red Blood Cell Count 4.95 10^6/uL (4.20-5.40); Red Cell Dist. Width 21.4 % (11.5-14.5); White Blood Cell Count 9.5 10^3/uL (4.8-10.8)
[2024-10-22 03:27] LABS: PT 14.7 Sec (11.4-14.6)
[2024-10-22 03:29] LABS: Blood Urea Nitrogen 10 mg/dl (7-17); Calcium 8.7 mg/dl (8.4-10.2); Carbon Dioxide 30 mmol/L (22-30); Chloride 102 mmol/L (98-107); Estimated Creatinine Clearance 47 ml/min; Glucose 83 mg/dl (70-99); Magnesium 1.8 mg/dl (1.6-2.3); Sodium 138 mmol/L (135-145); eGFR > 60.00
[2024-10-22] MEDS: SYNTHROID 112 MCG PO (06:37)
[2024-10-22] MEDS: LASIX 20 MG PO (08:38)
[2024-10-22] MEDS: DILANTIN 200 MG PO (08:38)
[2024-10-22] MEDS: ASPIR LOW (ENTERIC COATED) 81 MG PO (08:38)
[2024-10-22] MEDS: TYLENOL 650 MG PO ×2 (08:39→21:24)
[2024-10-22 08:48] LABS: ALT (SGPT) 27 U/L (0-35); AST (SGOT) 30 U/L (14-36); Albumin 3.6 g/dl (3.5-5.0); Alkaline Phosphatase 156 U/L (38-126); Direct Bilirubin 0.1 mg/dl (0.0-0.4); Total Bilirubin 0.5 mg/dl (0.2-1.3); Total Protein 5.8 g/dl (6.3-8.2)
--- NOTE | 2024-10-22 08:52 | W.PN.CARDCBS ---
Addendum entered and electronically signed by Norah Mancuso DO 10/22/24 09:49:
I saw and examined the patient.
The Ingot Buggy Operator's note was reviewed and I agree with the note.
Comment: Seen and examined sitting out of bed to chair. Abdominal pain is improved and she has had 2 bowel movements. No nausea or vomiting. No chest pain. No groin pain.
GEN: No distress, awake, alert, oriented x3
HEENT:mmm
LUNGS: CTA B/L, no wheezes/rales
CV: Reg, S1/S2, 2/6 syst LSB
ABD: soft, BS+, NT/ND
EXT:no edema
NEURO: Gross non-focal
SKIN: B/L groin sites soft, c/d/i. R groin site with some tenderness to palpation. bartolome-incisional ecchymoses of B/L groins as well as lower abdomen.
Plan:
-s/p R TF TAVR Medtronic Evolut #23mmHg 10/22/24
-had some severe abd pain last evening while having a bowel movement, then resolved. tolerated breakfast this AM. check LFTs, which appear chronically mildly elevated by review of prior values
-B/L groin sites with some ecchymoses, however no firm areas appreciated. manual pressure had to applied overnight due to oozing. hgb 13.0 on 10/22. would have low threshold to US if pain recurs
-continue asa.
-INR 1.1 10/22- coumadin to be resumed tonight
-continue OP atenolol and lasix.
-continue crestor.
-Post procedure echocardiogram pending
-ambulate
-OP cardiac follow up arranged
- Anticipate discharge tomorrow morning
Original Note:
Today's Communication / Plan
-
follow groin sites
resume coumadin
ambulate
Impression / Plan
-
Primary Materials Engineer: Dr. ALE Valenzuela
Assessment:
Severe s/p R TF TAVR Medtronic Evolut #23mmHg 10/22/24
PACs, 24% burden by monitor in 2020
History of NSVT
HTN
HLD
History of uterine cancer
History of DVT/PE
Hypercoagulable state, + lupus anticoagulant
Chronic coumadin therapy
History of CVA at age 38 and in 2022
History of epilepsy
Hypothyroidism
Fibromyalgia
Spina bifida
OA
Chronic hyponatremia, mild
Chronic LFT elevation, mild
Latter-day
ECHO 03/09/24: EF 60 to 65%, mild concentric LVH, stage II diastolic dysfunction, severe with peak/mean gradient 72/43 mmHg, mild to moderate AR, mild to moderate TR, PAP 50 mmHg
ECHO 10/21/24: Limited echo status post Medtronic TAVR with peak gradient 16 mmHg and mean gradient 10 mmHg, no AR
Plan:
-s/p R TF TAVR Medtronic Evolut #23mmHg 10/22/24
-had some severe abd pain last evening while having a bowel movement, then resolved. tolerated breakfast this AM. check LFTs, which appear chronically mildly elevated by review of prior values
-B/L groin sites with some ecchymoses, however no firm areas appreciated. manual pressure had to applied overnight due to oozing. hgb 13.0 on 10/22. would have low threshold to US if pain recurs
-continue asa. coumadin to be resumed tonight
-continue OP atenolol and lasix.
-continue crestor.
-ambulate
-OP cardiac follow up arranged
-plan for DC in AM
-d/w nursing
-d/w CT surgery
Progress Note - Materials Engineer
Subjective
Date of Service: October 22, 2024
reports some groin soreness. tolerated breakfast
Objective
Labs:
10/22/24 02:55
10/22/24 02:55
Labs
Hgb 13.0 g/dL (12.0-16.0) 10/22/24 02:55
Hct 41.0 % (37.0-47.0) 10/22/24 02:55
Plt Count 192 10^3/uL (130-400) 10/22/24 02:55
PT 14.7 Sec (11.4-14.6) H 10/22/24 02:55
INR 1.10 10/22/24 02:55
APTT 41.7 Sec (23.4-35.0) H 10/15/24 12:06
Sodium 138 mmol/L (135-145) 10/22/24 02:55
Potassium 4.0 mmol/L (3.5-5.1) 10/22/24 02:55
BUN 10 mg/dl (7-17) 10/22/24 02:55
Creatinine 0.6 mg/dL (0.6-1.0) 10/22/24 02:55
Glucose 83 mg/dl (70-99) 10/22/24 02:55
Vital Signs and I&O:
Vital Signs
Temp Pulse Resp BP Pulse Ox
97.3 F 77 20 144/85 97
10/22/24 08:00 10/22/24 08:00 10/22/24 08:00 10/22/24 07:59 10/22/24 08:00
Vital Signs
Temp Pulse Resp BP Pulse Ox
97.3 F 77 20 144/85 97
10/22/24 08:00 10/22/24 08:00 10/22/24 08:00 10/22/24 07:59 10/22/24 08:00
Intake & Output
10/20/24 10/21/24 10/22/24 10/23/24
07:59 07:59 07:59 07:59
Intake Total 960 / 960
Balance 960 / 960
Physical Exam
Physical Exam
GEN: No distress, awake, alert, oriented x3
HEENT: supple, anicteric, mmm, eomi
LUNGS: CTA B/L, no wheezes/rales
CV: Reg, S1/S2, 2/6 syst LSB
ABD: soft, BS+, NT/ND
EXT: No cyanosis, clubbing, edema
NEURO: Gross non-focal
SKIN: Warm, pink, dry. No rash. B/L groin sites soft, c/d/i. R groin site with some tenderness to palpation. bartolome-incisional ecchymoses of B/L groins as well as lower abdomen.
--- NOTE | 2024-10-22 08:54 | W.PN.CT ---
Today's Communication / Plan
-
-pod #1
-some abdominal pain (separate note) - improved with Simethicone, Tylenol, Pepcid
-tels: nsr, no katina or pause. 14 beat SVT noted
-Echo today
-encourage IS, OOB
-possible d/c
Assessment / Plan
-
- Severe aortic valve stenosis, symptomatic- s/p Right trans femoral TAVR with a 23 mm Medtronic Evolut FX + device on 10/21/24, pod #1
- Intraop TTE: Preoperative LVEF was 65% pre and post TAVR without inotropic support, no regional wall motion abnormalities or dyskinesia. The aortic valve was well seated with only trace PVL.
- Severe symptomatic aortic stenosis
- Hoahaoism
- Diverticulitis
- Hypertension
- Hyperlipidemia
- SIADH
- History of seizures (last 2019)
- CVA age 38
- CAD
- Spina bifida
- Migraines
- Hypothyroidism
- Uterine CA
Discussed patient care with: Nursing and Care Team
Subjective
-
Date of Service: October 22, 2024
Objective Data
-
Lab Results
10/22/24 02:55
10/22/24 02:55
PT 14.7 Sec (11.4-14.6) H 10/22/24 02:55
INR 1.10 10/22/24 02:55
APTT 41.7 Sec (23.4-35.0) H 10/15/24 12:06
Vital Signs
Vital Signs
Temp Pulse Resp BP Pulse Ox
97.3 F 77 20 144/85 97
10/22/24 08:00 10/22/24 08:00 10/22/24 08:00 10/22/24 07:59 10/22/24 08:00
CT Intake/Output/Weight
10/21/24 10/22/24 10/22/24
18:59 06:59 18:59
Intake Total 960 / 960
Balance 960 / 960
SaO2: 97
Physical Exam
-
General: Awake and AOx3
Cardiovascular: Regular rate & rhythm, Murmur (1/6 systolic @ lsb) and No Rub
Respiratory: Clear and Decreased Breath Sounds
Incision: Other (groins are cdi. R groin is tender from pressure earlier. Bruising noted @ R flank d/t Lovenox injections pre-TAVR)
Extremities: No Edema
Abdomen: soft, nondistended, mildly tender. No rebound tenderness
Data Reviewed
-
Lab Results: Results Reviewed
Medications: Active Meds Reviewed
Chest X-Ray: Report Reviewed and Image Reviewed
ECG: Report Reviewed and Image Reviewed
--- NOTE | 2024-10-22 11:48 | CM ---
Addendum entered by Meliza Donaldson 10/26/24 09:49:
prior to dc pt was given application for [facility] and [facility] brochure for area on aging.
Original Note:
Chart reviewed. Patient is independent of ADLS, lives with her and grandson in a [address], [address], ambulates with a RW. 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 CT Transitional RN on vacation, referral sent to [facility]. Plan is for
the patient to return [facility] with [facility]. CM to follow
[2024-10-22] MEDS: MAALOX 30 ML PO (14:11)
[2024-10-22] MEDS: CRESTOR 40 MG PO (17:25)
[2024-10-22] MEDS: COUMADIN 5 MG PO (17:25)
[2024-10-22] MEDS: TENORMIN 50 MG PO (17:26)
[2024-10-22] MEDS: DILANTIN 300 MG PO (21:24)
[2024-10-23] VITALS (8 sets, daily range): BP systolic 128–152; BP diastolic 74–86; PULSE 79; BMI 23.4
[2024-10-23] MEDS: TYLENOL 650 MG PO ×3 (03:36→21:43)
[2024-10-23 04:04] LABS: INR 1.21; PT 15.6 Sec (11.4-14.6)
--- NOTE | 2024-10-23 05:37 | PTCARENOTE ---
Pt received in bed at change of shift, no c/o cp or SOB, mild to mod c/o R knee pain. Tylenol given x2 during night and warm compress applied, pt refused stronger medications. L groin with old drainage, no changes from previous shift. R groin dsg
with small marked drainage this shift, no swelling or new bruising noted. Pt SR on the monitor, HR 60's, Pox 93-96% RA. Ambulates with assist x1 walker to bathroom, high fall risk d/t R m Call florentino within reach, uses call light appropriately, POC
ongoing.
[2024-10-23] MEDS: SYNTHROID 112 MCG PO (06:30)
[2024-10-23] MEDS: LASIX 20 MG PO (08:01)
[2024-10-23] MEDS: DILANTIN 200 MG PO (08:01)
[2024-10-23] MEDS: ASPIR LOW (ENTERIC COATED) 81 MG PO (08:01)
--- NOTE | 2024-10-23 08:21 | W.PN.CT ---
Addendum entered and electronically signed by Dwight De Luna MD 10/23/24 10:04:
I saw and examined the patient.
The PA's note was reviewed and I agree with the note.
Comment:
Lovenox bridge - coumadin
OK for D/C once arranged
Original Note:
Today's Communication / Plan
-
Plan:
-No major issues overnight. Hemodynamically and neurologically intact
-Groins C/D/I without significant hematoma
-Repeat echo yesterday 10/22 showed a well seated TAVR with PG/MG of /, Trace AI, mild TR, EF 65-70%
-Had brief SVT/PAT ast night, Asymptomatic
-Started 5 mg Coumadin last night, INR 1.21 today, may consider bridging with Lovenox
-Will obtain BMP and replete electrolytes
-OOB into chair/Ambulate
-Home tomorrow
Assessment / Plan
-
- Severe aortic valve stenosis, symptomatic- s/p Right trans femoral TAVR with a 23 mm Medtronic Evolut FX + device on 10/21/24, pod #2
- Intraop TTE: Preoperative LVEF was 65% pre and post TAVR without inotropic support, no regional wall motion abnormalities or dyskinesia. The aortic valve was well seated with only trace PVL.
- Severe symptomatic aortic stenosis
- Confucianist
- Diverticulitis
- Hypertension
- Hyperlipidemia
- SIADH
- History of seizures (last 2019)
- CVA age 38
- CAD
- Spina bifida
- Migraines
- Hypothyroidism
- Uterine CA
Discussed patient care with: Cardiology, Nursing, Respiratory Therapy, Pharmacy and Care Team
Subjective
-
Date of Service: October 23, 2024
No complaints overnight
Objective Data
-
Lab Results
10/22/24 02:55
PT 15.6 Sec (11.4-14.6) H 10/23/24 03:33
INR 1.21 10/23/24 03:33
APTT 41.7 Sec (23.4-35.0) H 10/15/24 12:06
Vital Signs
Vital Signs
Temp Pulse Resp BP Pulse Ox
98.3 F 65 16 137/75 98
10/23/24 03:33 10/23/24 07:59 10/23/24 03:33 10/23/24 07:59 10/23/24 03:33
CT Intake/Output/Weight
10/22/24 10/23/24 10/23/24
18:59 06:59 18:59
Intake Total 240 / 240
Balance 240 / 240
SaO2: 98 (RA)
Physical Exam
-
General: Awake, Oriented and AOx3
Cardiovascular: Regular rate & rhythm
Sternum: Stable
Incision: Clean, Dry, Intact and Dressing Intact
Extremities: Other (+trace edema)
Data Reviewed
-
Lab Results: Results Reviewed
Medications: Active Meds Reviewed
Chest X-Ray: Report Reviewed and Image Reviewed
ECG: Report Reviewed and Image Reviewed
[2024-10-23 08:39] LABS: Magnesium 1.9 mg/dl (1.6-2.3)
[2024-10-23 08:42] LABS: Blood Urea Nitrogen 10 mg/dl (7-17); Carbon Dioxide 31 mmol/L (22-30); Chloride 101 mmol/L (98-107); Estimated Creatinine Clearance 47 ml/min; Glucose 114 mg/dl (70-99); Potassium 3.8 mmol/L (3.5-5.1); Sodium 136 mmol/L (135-145); eGFR > 60.00
--- NOTE | 2024-10-23 09:17 | W.PN.CARDCBS ---
Today's Communication / Plan
-
Remains stable from cardiac standpoint
Post TAVR echo stable with normal EF and stable TAVR
Coumadin resumed as per CT surgery. Hx hypercoaguable and hx CVA X2. CT surgery considering Lovenox bridge
Cont ASA
Cont Atenolol and lasix and crestor
Outpt cardiac follow up arranged.
Likely d/c next [address] surgery.
Impression / Plan
-
Primary Insights Manager: Dr. ALE Valenzuela
Impression:
Severe s/p R TF TAVR Medtronic Evolut #23mmHg 10/22/24
PACs, 24% burden by monitor in 2020
History of NSVT
HTN
HLD
History of uterine cancer
History of DVT/PE
Hypercoagulable state, + lupus anticoagulant
Chronic coumadin therapy
History of CVA at age 38 and in 2022
History of epilepsy
Hypothyroidism
Fibromyalgia
Spina bifida
OA
Chronic hyponatremia, mild
Chronic LFT elevation, mild
Uatsdin
ECHO 03/09/24: EF 60 to 65%, mild concentric LVH, stage II diastolic dysfunction, severe with peak/mean gradient 72/43 mmHg, mild to moderate AR, mild to moderate TR, PAP 50 mmHg
ECHO 10/21/24: Limited echo status post Medtronic TAVR with peak gradient 16 mmHg and mean gradient 10 mmHg, no AR
Echo Oct 22 2024: Normal left ventricular size and function. Normal regional wall motion. Mild
concentric left ventricular hypertrophy. Left ventricular ejection fraction is
65-70% by visual assessment.
Normal right ventricular size and function.
Well seated Medtronic Evolut 23 TAVR. Peak/mean gradients across the aortic
valve are 23/10 mmHg. Trace aortic regurgitation.
Mild tricuspid regurgitation. Estimated pulmonary artery pressure of 35-40
mmHg. Assuming a right atrial pressure of 3 mmHg.
Normal pericardium without effusion.
Compared to prior study dated 10/21/2024, prior aortic valve peak/mean gradients
were 16/10 mmHg, respectively
Plan:
-s/p R TF TAVR Medtronic Evolut #23mmHg 10/22/24
HPI:had some severe abd pain last evening while having a bowel movement, then resolved. tolerated breakfast this AM. check LFTs, which appear chronically mildly elevated by review of prior values
Remains stable from cardiac standpoint
Post TAVR echo stable with normal EF and stable TAVR
Coumadin resumed as per CT surgery. Hx hypercoaguable and hx CVA X2. CT surgery considering Lovenox bridge
Cont ASA
Cont Atenolol and lasix and crestor
Outpt cardiac follow up arranged.
Likely d/c next [address] surgery.
Progress Note - Insights Manager
Subjective
Date of Service: October 23, 2024
Pt seen and examined. No complaints. No chest pain or shortness of breath.
Objective
Labs:
10/22/24 02:55
10/23/24 08:19
Labs
Hgb 13.0 g/dL (12.0-16.0) 10/22/24 02:55
Hct 41.0 % (37.0-47.0) 10/22/24 02:55
Plt Count 192 10^3/uL (130-400) 10/22/24 02:55
PT 15.6 Sec (11.4-14.6) H 10/23/24 03:33
INR 1.21 10/23/24 03:33
APTT 41.7 Sec (23.4-35.0) H 10/15/24 12:06
Sodium 136 mmol/L (135-145) 10/23/24 08:19
Potassium 3.8 mmol/L (3.5-5.1) 10/23/24 08:19
BUN 10 mg/dl (7-17) 10/23/24 08:19
Creatinine 0.5 mg/dL (0.6-1.0) L 10/23/24 08:19
Glucose 114 mg/dl (70-99) H 10/23/24 08:19
Vital Signs and I&O:
Vital Signs
Temp Pulse Resp BP Pulse Ox
98.3 F 65 16 137/75 98
10/23/24 03:33 10/23/24 07:59 10/23/24 03:33 10/23/24 07:59 10/23/24 08:22
Vital Signs
Temp Pulse Resp BP Pulse Ox
98.3 F 65 16 137/75 98
10/23/24 03:33 10/23/24 07:59 10/23/24 03:33 10/23/24 07:59 10/23/24 08:22
Intake & Output
10/21/24 10/22/24 10/23/24 10/24/24
06:59 06:59 06:59 06:59
Intake Total 960 / 960 240 / 240 480 / 480
Balance 960 / 960 240 / 240 480 / 480
Physical Exam
Physical Exam
General: No acute distress, AAOX3
Neck: Negative JVD
Heart: Regular, Negative S3 positive S1/S2, Negative S4, No murmur
Lungs: CTA b/l, negative wheezes/rales/rhonchi
Abd: Positive BS, NT/ND, neg rebound/rigidity/guarding
Ext: Negative cyanosis/clubbing/edema
Neuro: nonfocal
[2024-10-23] MEDS: KCL 20 MEQ PO (10:37)
[2024-10-23] MEDS: DIOVAN 80 MG PO (10:37)
[2024-10-23] MEDS: MAGNESIUM OXIDE 500 MG PO (10:37)
--- NOTE | 2024-10-23 15:03 | PTCARENOTE ---
Assumed care of the patient now, assisted her to the bathroom using the rolling walker. Resting in bed now, bilateral groin dressings are dry and intact. Call chadd in reach.
[2024-10-23] MEDS: LOVENOX 50 MG SC (16:58)
[2024-10-23] MEDS: COUMADIN 5 MG PO (17:00)
[2024-10-23] MEDS: CRESTOR 40 MG PO (17:01)
[2024-10-23] MEDS: TENORMIN 50 MG PO (17:01)
[2024-10-23] MEDS: DILANTIN 300 MG PO (21:37)
--- NOTE | 2024-10-24 00:12 | PTCARENOTE ---
Assumed care on pt at 1900, aaox3, resting in bed with no complaints of cp or SOB. SR on the monitor, HR 60's. BP stable. Pox 95% RA. Ambulating with assist x1 to bathroom, no urinary complaints beside frequency. B/l groin dsg CDI, R groin remains
bruised with slight tenderness. Call florentino within reach, POC ongoing.
[2024-10-24 04:08] VITALS: BP 133/69
[2024-10-24 04:15] VITALS: BMI 23.4
[2024-10-24 04:54] LABS: Hematocrit 39.4 % (37.0-47.0); Hemoglobin 12.5 g/dL (12.0-16.0); Mean Corp Hgb Conc. 31.7 g/dL (33.0-37.0); Mean Corpuscular Volume 82.1 fL (81.0-99.0); Platelet Count 192 10^3/uL (130-400); Red Cell Dist. Width 21.1 % (11.5-14.5); White Blood Cell Count 7.8 10^3/uL (4.8-10.8)
[2024-10-24 05:01] LABS: INR 1.88; PT 21.8 Sec (11.4-14.6)
[2024-10-24 05:11] LABS: Blood Urea Nitrogen 13 mg/dl (7-17); Calcium 8.8 mg/dl (8.4-10.2); Carbon Dioxide 31 mmol/L (22-30); Chloride 100 mmol/L (98-107); Estimated Creatinine Clearance 47 ml/min; Glucose 87 mg/dl (70-99); Potassium 4.4 mmol/L (3.5-5.1); Sodium 136 mmol/L (135-145); eGFR > 60.00
--- NOTE | 2024-10-24 05:56 | W.PN.CT ---
Today's Communication / Plan
-
Plan:
-No major issues overnight. Hemodynamically and neurologically intact
-Groins C/D/I without significant hematoma
-Repeat echo on 10/22 showed a well seated TAVR with PG/MG of 23/10, Trace AI, mild TR, EF 65-70%
-No rhythm issues overnight
-Has received 5 mg and 5 mg Coumadin thus far INR 1.88 today, up from 1.21 yesterday, does not appear to need bridging with Lovenox, consider repeat INR prior to d/c to help with Coumadin dosing
-OOB into chair/Ambulate
-Home today
Assessment / Plan
-
- Severe aortic valve stenosis, symptomatic- s/p Right trans femoral TAVR with a 23 mm Medtronic Evolut FX + device on 10/21/24, pod #3
- Intraop TTE: Preoperative LVEF was 65% pre and post TAVR without inotropic support, no regional wall motion abnormalities or dyskinesia. The aortic valve was well seated with only trace PVL.
- Severe symptomatic aortic stenosis
- Baptism
- Diverticulitis
- Hypertension
- Hyperlipidemia
- SIADH
- History of seizures (last 2019)
- CVA age 38
- CAD
- Spina bifida
- Migraines
- Hypothyroidism
- Uterine CA
Discussed patient care with: Cardiology, Nursing, Respiratory Therapy, Pharmacy and Care Team
Subjective
-
Date of Service: October 24, 2024
Pt c/o mild incisional pain, otherwise feels well
Objective Data
-
Lab Results
10/24/24 04:13
10/24/24 04:13
PT 15.6 Sec (11.4-14.6) H 10/23/24 03:33
INR 1.21 10/23/24 03:33
APTT 41.7 Sec (23.4-35.0) H 10/15/24 12:06
Vital Signs
Vital Signs
Temp Pulse Resp BP Pulse Ox
97.9 F 64 18 133/76 95
10/24/24 04:15 10/24/24 00:00 10/24/24 04:15 10/23/24 22:38 10/24/24 04:15
CT Intake/Output/Weight
10/23/24 10/23/24 10/24/24
06:59 18:59 06:59
Intake Total 240 / 240 720 / 960 240 / 960
Balance 240 / 240 720 / 960 240 / 960
SaO2: 95 (RA)
Physical Exam
-
General: Awake, Oriented and AOx3
Cardiovascular: Regular rate & rhythm, No Murmurs, No Rub and No Gallop
Respiratory: Decreased Breath Sounds (at bases, otherwise clear)
Incision: Clean, Dry, Intact and Dressing Intact
Extremities: Other (+trace edema)
Data Reviewed
-
Lab Results: Results Reviewed
Medications: Active Meds Reviewed
Chest X-Ray: Report Reviewed and Image Reviewed
CT Scan: Report Reviewed and Image Reviewed
ECG: Report Reviewed and Image Reviewed
[2024-10-24] MEDS: SYNTHROID 112 MCG PO (06:06)
[2024-10-24] MEDS: TYLENOL 650 MG PO ×2 (06:19→10:50)
[2024-10-24 06:56] VITALS: BP 148/94
--- NOTE | 2024-10-24 07:03 | W.DCSUMMARY ---
Discharge Summary
Discharge Data
Date of Admission: 10/21/24
Date of Discharge: 10/24/24
-
Pending Results: No
Hospital Course
Primary care physician: Genna Hutchinson
Outpatient mill machinist: Nadeem Valenzuela
Inpatient consultants: [facility]
Procedures:
1. TAVR
Primary Diagnosis:
1. aortic stenosis
Secondary Diagnoses:
1. Caodaism unaccepting of blood products
2. Diverticulitis
3. Hypertension
4. Hyperlipidemia
5. SIADH
6. History of seizures (last 2019)
7. CVA
8. CAD (50% distal Left main, 50-60% prox RCA stenosis)
9. Spina bifida
10. Migraines
11. Hypothyroidism
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
HPI: 83 year old female was electively admitted 10/21/24 for TAVR
Hospital course: Patient underwent right transfemoral TAVR #23mm Medtronic FX by Drs. Oni Bird and Nadeem Agosto. Patient returned to IVU in stable condition. Groin sites intact w/o bleeding/hematoma. Coumadin started and plan for Lovenox bridge
on discharge. Postprocedure TTE on 10/22/2024 reported an EF of 65-70%, AV gradients 23/10 mmHg, and trace AI. ECG reported sinus rhythm with resolution of left posterior fascicular block. Patient received 2 doses of Lovenox and INR on POD #2 was
1.88. Patient will be discharged on her usual home dosing of Coumadin without need for Lovenox bridge. Patient will be followed by [facility] who will obtain an INR fingerstick on 10/26/[address] Bhakta for monitoring.
Home medication changes:
none
Discharge Plan
-
Patient Disposition: Home (Routine Discharge)
Discharge Diagnosis/Procedures: TF-TAVR
Condition: Good
Diet: Low Cholesterol and 2 Gram Sodium
Activity: As tolerated and No strenuous activity
Driving Restrictions: No driving for 2 weeks
Bathing Restrictions: OK to Shower
Blood Work: PT/INR finger stick on 10/26/[address] Sparrow
Others Tests: 30 Day Follow Up Echocardiogram:
Other Services: Cardiac Rehab
Wound Care: Please do not apply any lotions, creams or powders to groin areas. Please monitor for increased redness, swelling, pain or drainage. Notify your doctor if any occur.
Specialty Instructions: Weigh Daily- Call MD for wt gain/loss 3 lbs overnight/5 lbs in 1 week
Referrals:
[facility] [Outside]
Steff Renteria PA-C [Specified Professional Personl] - 11/17/24 1:20 pm
Genna Hutchinson CRNP [Family Provider] - in four to six weeks (Please make an appointment in four to six weeks )
Prescriptions:
Continued
aspirin 81 MG tablet,delayed release (DR/EC)
81 mg PO DAILY
levothyroxine 112 MCG tablet
112 mcg PO DAILY
rosuvastatin [Crestor] 40 MG tablet
40 mg PO QPM
atenolol 50 MG tablet
50 mg PO QPM
warfarin [Jantoven] 2 MG tablet
2 mg PO SUMOWETHSA
multivitamin with folic acid [Tab-A-Anjel] 1 TABLET tablet
1 tab PO DAILY
pantoprazole 40 MG tablet,delayed release (DR/EC)
40 mg PO DAILY
cholecalciferol (vitamin D3) [Vitamin D3] 50 mcg (2,000 unit) Tablet
50 mcg PO DAILY Qty: 0
meclizine 12.5 mg Tablet
12.5 mg PO Q8H PRN (Reason: dizziness)
warfarin 2 mg Tablet
4 mg PO TUFR
furosemide 20 mg Tablet
20 mg PO DAILY PRN (Reason: fluid retention)
phenytoin sodium extended 300 mg Capsule
300 mg PO HS Qty: 0 0RF
phenytoin sodium extended 100 MG capsule
200 mg PO DAILY Qty: 0 0RF
valsartan 80 mg Tablet
80 mg PO DAILY Qty: 0 0RF
potassium chloride
99 meq PO HS Qty: 0 0RF
Discontinued
Lovenox
Discharge Orders:
Discharge Patient (As Directed); Ordered 10/24/24
Ordered By: Little Oquendo
Care Plan Goals
Care Plan Goals:
Problem: Readiness for enhanced knowledge related to diagnosis and treatment plan
Goal: Understand your diagnosis and treatment plan needs, including medications if applicable.
Instructions: Know your diagnosis, underlying causes and treatment plan options, including medications if applicable. Consult with your health care team to learn about your diagnosis and treatment plan, including medications if applicable.
Problem: Readiness for enhanced coping
Goal: Recognize and manage stressors that negatively impact your health
Instructions: Initiate alternate copying strategies as instructed by your health care team. Identify and utilize available community resources and support systems. You can access the local crisis hotline by calling , if needed.
Discharge Date and Time
Print Language: MALAWIAN
[2024-10-24] MEDS: DILANTIN 200 MG PO (08:34)
[2024-10-24] MEDS: ASPIR LOW (ENTERIC COATED) 81 MG PO (08:34)
[2024-10-24] MEDS: DIOVAN 80 MG PO (08:34)
[2024-10-24] MEDS: FLUSH (NSS) 1 FLUSH IV (08:35)
[2024-10-24] MEDS: LASIX 20 MG PO (08:35)
[2024-10-24] MEDS: LOVENOX 50 MG SC (08:35)
--- NOTE | 2024-10-24 09:56 | PTCARENOTE ---
Bilateral groin dressings are dry and intact, assisted patient to the bathroom with rolling walker, medicated by prior shift for right knee pain with relief. Given morning dose of lovenox bridging to coumadin. Patient expecting to go home today.
[2024-10-24 10:53] VITALS: BP 149/96
[2024-10-24 10:56] VITALS: BP 146/96
--- NOTE | 2024-10-24 11:23 | PTCARENOTE ---
Patient is cleared for discharge home with [facility] services. Patient is aware that she should resume coumadin dosing and no longer needs lovenox. Dressings removed from bilateral groin, areas are tender and ecchymotic but no bleeding or signs of a
hematoma. Reviewed post TAVR restrictions and instructions and she states her understanding. Aware of cardiology follow up appointment and that TAVR coordinator will contact her with echo scheduling and that she should continue with PCP for coumadin
dosing, with PT/INR to be done this Friday. Patient discharged home with her daughter Cary.
== END 2024-10-24 11:30 | disposition home health service (06) | DRG 267 ==
LOC: IVU 09:00
PROVIDERS: Clinical Nurse Specialist Acute Care; Nurse Practitioner; Nurse Practitioner Acute Care; Physician Assistant Medical; ADMITTING PHYSICIAN Thoracic Surgery (Cardiothoracic Vascular Surgery); CONSULT PHYSICIAN Internal Medicine Interventional Cardiology; FAMILY PHYSICIAN Nurse Practitioner Primary Care
PROC: 02RF38Z Replacement of Aortic Valve with Zooplastic Tissue, Percutaneous Approach (ICD-10-PCS; 2024-10-19)
DX: I35.0 Nonrheumatic aortic (valve) stenosis (principal); Z00.6 Encounter for examination for normal comparison and control in clinical research program; D68.62 Lupus anticoagulant syndrome; E22.2 Syndrome of inappropriate secretion of antidiuretic hormone; I82.541 Chronic embolism and thrombosis of right tibial vein; I25.10 Atherosclerotic heart disease of native coronary artery without angina pectoris; K21.9 Gastro-esophageal reflux disease without esophagitis; E78.00 Pure hypercholesterolemia, unspecified; E03.9 Hypothyroidism, unspecified; K44.9 Diaphragmatic hernia without obstruction or gangrene; M79.7 Fibromyalgia; I10 Essential (primary) hypertension; R56.9 Unspecified convulsions; G43.909 Migraine, unspecified, not intractable, without status migrainosus; I44.5 Left posterior fascicular block; Q05.9 Spina bifida, unspecified; Z65.8 Other specified problems related to psychosocial circumstances; Z79.01 Long term (current) use of anticoagulants; Z79.899 Other long term (current) drug therapy; Z86.711 Personal history of pulmonary embolism; Z86.73 Personal history of transient ischemic attack (TIA), and cerebral infarction without residual deficits
CPT/HCPCS: 93308; 33361; 36415; 71045; 71046; 80048; 80053; 81003; 81015; 82248; 83036; 83735; 83880; 85025; 85027; 85347; 85610; 85730; 86850; 86900; 86901; 87070; 87086; 93005; 93321; 93325; C1760; C1769; C1894

== ENCOUNTER → 2024-10-27 16:18 | Outpatient (REF) | payer MEDICARE, SELFPAY | LOC: RAD 16:18 | PROVIDERS: ATTENDING PHYSICIAN Thoracic Surgery (Cardiothoracic Vascular Surgery) | DX: Z95.2 Presence of prosthetic heart valve (principal); R60.9 Edema, unspecified; R10.31 Right lower quadrant pain | CPT/HCPCS: 93926 ==

== ENCOUNTER → 2024-10-29 10:57 | Outpatient (REF) | payer MEDICARE, SELFPAY ==
[2024-10-29 12:58] LABS: % Eosinophils 6.8 % (0-6); % Immature Granulocytes 0.9 % (0-0.5); % Lymphocytes 11.6 % (20.5-51.1); % Monocytes 6.2 % (1.7-9.3); % Neutrophils 73.5 % (42.2-75.2); Absolute Basophils 0.1 10^3/uL (0-0.2); Absolute Eosinophils 0.5 10^3/uL (0-0.7); Absolute Immature Granulocytes 0.1 10^3/uL (0-0.05); Absolute Lymphocytes 0.9 10^3/uL (1.2-3.4); Absolute Monocytes 0.5 10^3/uL (0.1-0.6); Absolute Neutrophils 5.9 10^3/uL (1.4-6.5); Hematocrit 40.3 % (37.0-47.0); Hemoglobin 12.8 g/dL (12.0-16.0); Mean Corp Hgb Conc. 31.8 g/dL (33.0-37.0); Mean Corpuscular Hgb 26.4 pg (27.0-31.0); Mean Corpuscular Volume 83.1 fL (81.0-99.0); Nucleated Red Blood Cells % 0.4 %; Platelet Count 243 10^3/uL (130-400); Red Blood Cell Count 4.85 10^6/uL (4.20-5.40); Red Cell Dist. Width 21.8 % (11.5-14.5)
[2024-10-29 13:01] LABS: PT 16.3 Sec (11.4-14.6)
[2024-10-29 14:14] LABS: INR 1.28
== END ==
LOC: RAD 10:57
PROVIDERS: ATTENDING PHYSICIAN Thoracic Surgery (Cardiothoracic Vascular Surgery); FAMILY PHYSICIAN Internal Medicine Geriatric Medicine
DX: Z95.2 Presence of prosthetic heart valve (principal); R10.31 Right lower quadrant pain; R19.09 Other intra-abdominal and pelvic swelling, mass and lump
CPT/HCPCS: 36415; 85025; 85610; 93926

== ENCOUNTER → 2024-11-05 07:30 | Outpatient (REF) | payer MEDICARE, SELFPAY ==
[2024-11-05 11:39] LABS: % Basophils 0.9 % (0-2); % Eosinophils 6.5 % (0-6); % Immature Granulocytes 1.1 % (0-0.5); % Lymphocytes 11.8 % (20.5-51.1); % Monocytes 4.9 % (1.7-9.3); % Neutrophils 74.8 % (42.2-75.2); Absolute Basophils 0.1 10^3/uL (0-0.2); Absolute Eosinophils 0.6 10^3/uL (0-0.7); Absolute Immature Granulocytes 0.1 10^3/uL (0-0.05); Absolute Monocytes 0.4 10^3/uL (0.1-0.6); Absolute Neutrophils 6.6 10^3/uL (1.4-6.5); Hematocrit 44.8 % (37.0-47.0); Hemoglobin 13.6 g/dL (12.0-16.0); Mean Corp Hgb Conc. 30.4 g/dL (33.0-37.0); Mean Corpuscular Hgb 25.9 pg (27.0-31.0); Mean Corpuscular Volume 85.3 fL (81.0-99.0); Nucleated Red Blood Cells % 0.2 %; Platelet Count 245 10^3/uL (130-400); Red Blood Cell Count 5.25 10^6/uL (4.20-5.40); White Blood Cell Count 8.8 10^3/uL (4.8-10.8)
[2024-11-05 11:52] LABS: NT-proBNP 726 pg/ml
[2024-11-05 11:54] LABS: ALT (SGPT) 54 U/L (0-35); AST (SGOT) 57 U/L (14-36); Albumin 4.4 g/dl (3.5-5.0); Alkaline Phosphatase 137 U/L (38-126); Blood Urea Nitrogen 22 mg/dl (7-17); Calcium 9.2 mg/dl (8.4-10.2); Carbon Dioxide 29 mmol/L (22-30); Chloride 101 mmol/L (98-107); Glucose 83 mg/dl (70-99); Potassium 4.5 mmol/L (3.5-5.1); Sodium 138 mmol/L (135-145); Total Bilirubin 0.5 mg/dl (0.2-1.3); Total Protein 6.9 g/dl (6.3-8.2); eGFR > 60.00
== END ==
LOC: OLAB 07:30
PROVIDERS: ATTENDING PHYSICIAN Nurse Practitioner Primary Care
DX: R63.5 Abnormal weight gain (principal)
CPT/HCPCS: 36415; 80053; 82565; 83880; 85025

== ENCOUNTER → 2024-11-22 13:55 | Outpatient (REF) | payer MEDICARE, SELFPAY | LOC: HWRCS 13:55 | PROVIDERS: ATTENDING PHYSICIAN Internal Medicine Cardiovascular Disease; FAMILY PHYSICIAN Nurse Practitioner Primary Care | DX: I49.1 Atrial premature depolarization (principal) | CPT/HCPCS: 93306 ==

== ENCOUNTER → 2025-01-19 14:12 | Outpatient (REF) | payer MEDICARE, SELFPAY | LOC: RAD 14:12 | PROVIDERS: ATTENDING PHYSICIAN Nurse Practitioner Primary Care | DX: I35.0 Nonrheumatic aortic (valve) stenosis (principal); I25.10 Atherosclerotic heart disease of native coronary artery without angina pectoris; Z86.73 Personal history of transient ischemic attack (TIA), and cerebral infarction without residual deficits; D68.59 Other primary thrombophilia; H53.9 Unspecified visual disturbance | CPT/HCPCS: 93880 ==

== ENCOUNTER → 2025-03-23 13:49 | Outpatient (REF) | payer MEDICARE, SELFPAY | LOC: MRI 3T 13:49 | PROVIDERS: ATTENDING PHYSICIAN Nurse Practitioner Primary Care | DX: Z86.73 Personal history of transient ischemic attack (TIA), and cerebral infarction without residual deficits (principal); D68.59 Other primary thrombophilia; H53.9 Unspecified visual disturbance | CPT/HCPCS: 70553; A9575 ==

== ENCOUNTER 2025-04-12 15:43 | Inpatient (IN) | payer MEDICARE, SELFPAY ==
[2025-04-12] VITALS (11 sets, daily range): BP systolic 127–162; BP diastolic 56–102; BMI 23.0
--- NOTE | 2025-04-12 11:02 | ED.GENMED ---
History of Present Illness
<Rickey Bautista PA-C - Last Filed: 04/12/25 16:02>
General
Chief Complaint: Change in Mental Status
Time Seen by Provider: 04/12/25 10:51
History of Present Illness
History of Present Illness:
84-year-old female with history of hyperlipidemia and aortic stenosis status post TAVR in September 2024 presents the emergency department for evaluation of confusion and general malaise. Last known normal was 2 days ago. She states that she feels quite
unwell and 'cannot function'. Denies chest pain or dyspnea. Denies any vomiting or diarrhea.
Past History
<Rickey Bautista PA-C - Last Filed: 04/12/25 16:02>
Past History
ED Past Medical History: CAD, Cancer (Uterine and Ovarian CA), CVA (with left sided weakness), HTN, Hypercholesterolemia, ID, Seizures, Hypothyroidism and Other (Migraines, Spina Bifida, PE, Hiatal hernia, )
ED Past Surgical History: Gynecological (Hysterectomy. Bilateral lumpectomys), Orthopedic (Right knee surgery, Right shoulder surgery), Urological (Kidney surgery) and Other (Hernia repair)
Social History
Tobacco: Non-smoker
Alcohol: None
Drug: None
Personal:
Living: with family
Employment: Employed
Family History
Family History: Other
Review of Systems
<Rickey Bautista PA-C - Last Filed: 04/12/25 16:02>
Review of Systems
Allergies reviewed?: Yes
All Other Systems: ROS reviewed and negative except as documented in HPI and ROS
Phy Exam
<Rickey Bautista PA-C - Last Filed: 04/12/25 16:02>
Physical Exam
Physical Exam:
GEN: Well appearing, NAD, WDWN
HEENT: Oral mucosa moist, no scleral icterus, no nasal congestion
Cardiac: Regular rate and rhythm, no murmur
Lung: No respiratory distress, no tachypnea, lungs clear to auscultation bilaterally
Abdomen: Soft, nontender
MSK: No gross deformity or injuries
Skin: Good color, no pallor or jaundice, no rashes
Neuro: AO x3; CN II-XII grossly intact. BUE strength 5/5 in all vincent, sensation intact and symmetric. BLE strength 5/5 in all vincent, sensation intact and symmetric
Psych: Calm, cooperative
Course
<Rickey Bautista PA-C - Last Filed: 04/12/25 16:02>
Orders/Labs/Results
Orders:
Orders
04/12/25 10:30
PT/INR [Prothrombin Time] Urgent
04/12/25 11:01
Electrocardiogram (*1) Urgent
Reason for Study: Vertigo / Dizzy
CT Head W/o Iv Contrast Urgent
Comment:
Reason For Exam: confusion
EKG- Treatment ONCE
04/12/25 11:15
Urinalysis Reflex To Culture Urgent
Date Specimen was Collected: 04/12/25
Time Specimen was Collected: 11:13
Urine Microscopic Reflex Cult Urgent
Urine Culture Urgent
EVAN Source: U
Specimen Description:
Date Specimen was Collected: 04/12/25
Time Specimen was Collected: 11:13
04/12/25 12:01
Complete Blood Count/With Diff Urgent
Comprehensive Metabolic Panel Urgent
04/12/25 12:15
Troponin I Urgent
04/12/25 12:49
CefTRIAXone [Rocephin] 1,000 mg IV NOW STA
04/12/25 15:13
CT Head & Neck Angio W/wo IV Urgent
Comment:
Reason For Exam: cva/tia
04/12/25 15:14
Admit/Transfer Patient As Directed
Co-Sign Provider:
Level of Care: Inpatient admission
Assign to:: Telemetry
Physician / Group: sal lr
Diagnosis: dizziness w/ h/a concern cva/ta, uti
Reason for Telemetry: CVA/TIA
Date to Stop Telemetry: 04/15/25
Time to Stop Telemetry: 11:00
Reason for Hospitalization: dizziness w/ h/a concern cva/ta, uti
Expected length of stay greater than two midnights?: Yes
ELOS- Estimated Length of Stay in days: 3
I certify the patient meets the requirements for IP care: Yes
04/12/25 15:15
Code Status As Directed
Resuscitation Status: Full Code
04/12/25 15:18
Acetaminophen [Tylenol] 650 mg PO NOW STA
04/12/25 15:21
PRN Pain Medication Management As Directed
May give lesser potent ordered pain med per pt: Yes
preference::
Protocol:: Medication orders for pain may be administered in a
manner that supports deferring to patient preference
when the pt is:
- Requesting an ordered lesser potent pain medication.
Least to most potent pain medications are defined
as: acetaminophen < NSAID < tramadol < opioids
(morphine, oxycodone, hydromorphone).
- Requesting a lesser dose of the same medication IF
ORDERED.
- Requesting a less intrusive route of administration
if both routes are prescribed by the provider (PO <
IV).
04/12/25 15:26
NEUROLOGY CONSULT Routine
Consulting Provider: Raffy White
Was physician already notified: Yes
Reason for consult: h/a dizziness concern cva tia
04/12/25 15:30
0.9% Sodium Chloride 1000 ml [Nss] 1,000 ml IV 100 mls/hr
04/15/25 11:00
DC Protocol for Telemetry ONCE
Abnormal Lab Results
04/12/25 04/12/25 04/12/25
10 11:15 12:01
RBC 5.51 H 10^6/uL
(4.20-5.40)
MCV 80.8 L fL
(81.0-99.0)
MCH 25.2 L pg
(27.0-31.0)
MCHC 31.2 L g/dL
(33.0-37.0)
RDW 22.3 H %
(11.5-14.5)
Abs Immat Gran (auto) 0.1 H 10^3/uL
(0-0.05)
Absolute Lymphs (auto) 1.1 L 10^3/uL
(1.2-3.4)
Immature Gran % 0.9 H %
(0-0.5)
Lymphocytes % 14.1 L %
(20.5-51.1)
Eosinophils % 6.2 H %
(0-6)
PT 20.9 H Sec
(11.4-14.6)
Carbon Dioxide 31 H mmol/L
(22-30)
BUN 24 H mg/dl
(7-17)
AST 39 H U/L
(14-36)
ALT 36 H U/L
(0-35)
Alkaline Phosphatase 150 H U/L
(38-126)
Ur Occult Blood Reflex 3+ A
(Negative)
Urine Nitrite (Reflex) Positive A
(Negative)
Leukocyte Esterase Rfl 3+ A
(Negative)
Urine RBC 11-15 A /HPF
(0-2)
Urine WBC (Reflex) 26-30 A /HPF
(0-5)
Urine Bacteria (Reflex) Many A
(Negative)
Urine Albumin (Reflex) 3+ A
(Neg - Trace)
04/12/25 12:01
04/12/25 12:01
Vital Signs
Initial and Last Documented VS:
Initial Vital Signs
Pulse Resp BP Pulse Ox
67 20 144/102 98
04/12/25 10:16 04/12/25 10:16 04/12/25 10:16 04/12/25 10:16
Last Documented Vital Signs
Temp Pulse Resp BP Pulse Ox
99.5 F 71 17 152/73 97
04/12/25 15:08 04/12/25 15:08 04/12/25 15:08 04/12/25 15:08 04/12/25 15:08
<Hermilo Hampton MD - Last Filed: 04/12/25 14:36>
Orders/Labs/Results
Orders:
Orders
04/12/25 10:30
PT/INR [Prothrombin Time] Urgent
04/12/25 11:01
Electrocardiogram (*1) Urgent
Reason for Study: Vertigo / Dizzy
CT Head W/o Iv Contrast Urgent
Comment:
Reason For Exam: confusion
EKG- Treatment ONCE
04/12/25 11:15
Urinalysis Reflex To Culture Urgent
Date Specimen was Collected: 04/12/25
Time Specimen was Collected: 11:13
Urine Microscopic Reflex Cult Urgent
Urine Culture Urgent
EVAN Source: U
Specimen Description:
Date Specimen was Collected: 04/12/25
Time Specimen was Collected: 11:13
04/12/25 12:01
Complete Blood Count/With Diff Urgent
Comprehensive Metabolic Panel Urgent
04/12/25 12:15
Troponin I Urgent
04/12/25 12:49
CefTRIAXone [Rocephin] 1,000 mg IV NOW STA
04/12/25 15:13
CT Head & Neck Angio W/wo IV Urgent
Comment:
Reason For Exam: cva/tia
04/12/25 15:14
Admit/Transfer Patient As Directed
Co-Sign Provider:
Level of Care: Inpatient admission
Assign to:: Telemetry
Physician / Group: sal lr
Diagnosis: dizziness w/ h/a concern cva/ta, uti
Reason for Telemetry: CVA/TIA
Date to Stop Telemetry: 04/15/25
Time to Stop Telemetry: 11:00
Reason for Hospitalization: dizziness w/ h/a concern cva/ta, uti
Expected length of stay greater than two midnights?: Yes
ELOS- Estimated Length of Stay in days: 3
I certify the patient meets the requirements for IP care: Yes
04/12/25 15:15
Code Status As Directed
Resuscitation Status: Full Code
04/12/25 15:18
Acetaminophen [Tylenol] 650 mg PO NOW STA
04/12/25 15:21
PRN Pain Medication Management As Directed
May give lesser potent ordered pain med per pt: Yes
preference::
Protocol:: Medication orders for pain may be administered in a
manner that supports deferring to patient preference
when the pt is:
- Requesting an ordered lesser potent pain medication.
Least to most potent pain medications are defined
as: acetaminophen < NSAID < tramadol < opioids
(morphine, oxycodone, hydromorphone).
- Requesting a lesser dose of the same medication IF
ORDERED.
- Requesting a less intrusive route of administration
if both routes are prescribed by the provider (PO <
IV).
04/12/25 15:26
NEUROLOGY CONSULT Routine
Consulting Provider: Raffy White
Was physician already notified: Yes
Reason for consult: h/a dizziness concern cva tia
04/12/25 15:30
0.9% Sodium Chloride 1000 ml [Nss] 1,000 ml IV 100 mls/hr
04/15/25 11:00
DC Protocol for Telemetry ONCE
Abnormal Lab Results
04/12/25 04/12/25 04/12/25
10:30 11:15 12:01
RBC 5.51 H 10^6/uL
(4.20-5.40)
MCV 80.8 L fL
(81.0-99.0)
MCH 25.2 L pg
(27.0-31.0)
MCHC 31.2 L g/dL
(33.0-37.0)
RDW 22.3 H %
(11.5-14.5)
Abs Immat Gran (auto) 0.1 H 10^3/uL
(0-0.05)
Absolute Lymphs (auto) 1.1 L 10^3/uL
(1.2-3.4)
Immature Gran % 0.9 H %
(0-0.5)
Lymphocytes % 14.1 L %
(20.5-51.1)
Eosinophils % 6.2 H %
(0-6)
PT 20.9 H Sec
(11.4-14.6)
Carbon Dioxide 31 H mmol/L
(22-30)
BUN 24 H mg/dl
(7-17)
AST 39 H U/L
(14-36)
ALT 36 H U/L
(0-35)
Alkaline Phosphatase 150 H U/L
(38-126)
Ur Occult Blood Reflex 3+ A
(Negative)
Urine Nitrite (Reflex) Positive A
(Negative)
Leukocyte Esterase Rfl 3+ A
(Negative)
Urine RBC 11-15 A /HPF
(0-2)
Urine WBC (Reflex) 26-30 A /HPF
(0-5)
Urine Bacteria (Reflex) Many A
(Negative)
Urine Albumin (Reflex) 3+ A
(Neg - Trace)
04/12/25 12:01
04/12/25 12:01
Vital Signs
Initial and Last Documented VS:
Initial Vital Signs
Pulse Resp BP Pulse Ox
67 20 144/102 98
04/12/25 10:16 04/12/25 10:16 04/12/25 10:16 04/12/25 10:16
Last Documented Vital Signs
Temp Pulse Resp BP Pulse Ox
99.5 F 71 17 152/73 97
04/12/25 15:08 04/12/25 15:08 04/12/25 15:08 04/12/25 15:08 04/12/25 15:08
<Rickey Bautista PA-C - Last Filed: 04/12/25 16:02>
MDM/Problems Addressed
MDM/Problems Addressed:
Patient has no focal neurologic symptoms concerning for stroke, given her reported confusion, although she is alert and oriented fully in the ED, a CT of the head was obtained showing no acute pathology. Patient is clinically well however does
appear very weak and fatigued. While labs are normal she is not a safe discharge home due to profound weakness and ambulatory dysfunction. Urinalysis positive, will admit for IV antibiotics
<Rickey Bautista PA-C - Last Filed: 04/12/25 16:02>
*Pulse Oximetry
SaO2: 98
Oxygen Mode of Delivery: Room air
Patient hypoxic: no
*Critical Care Note
Total Time (30-74mins, 75-104mins- exclusive of procedures): Not Applicable
ED Attending Note
<Rickey Bautista PA-C - Last Filed: 04/12/25 16:02>
-
Portions of this chart may have been created with voice recognition software.� Occasional wrong word or��sound alike� substitutions may have occurred due to the inherent limitations of voice recognition software.
<Hermilo Hampton MD - Last Filed: 04/12/25 14:36>
ED Attending Note
Patient seen and examined by attending physician: Yes
I performed the substantive portion of visit, reviewed & personally made and approve the management plan that is documented in note by myself or BRITNEY.: Yes
ED Attending Note:
I have seen and evaluated the patient with a [id number] encounter. I have spoken to the [BRITNEY] and involved in the medical history, the physical exam, medical decision making.
Evaluation and management service: agree unless noted differently below.
Results interpretation: agree unless noted differently below.
84-year-old woman presenting to the emergency department feeling unwell. Patient states that for the past few days she feels unwell and cannot function. She cannot give a clear pinpoint of what is wrong. Does describe a mild headache. No chest
pain. No difficulty breathing. No nausea vomiting diarrhea. No abdominal pain.
GENERAL: in no acute distress
HEENT: normocephalic, extraocular movements intact, moist oral mucosa
NECK: normal inspection
RESPIRATORY: no respiratory distress, clear to auscultation bilaterally
CARDIOVASCULAR: regular rate and rhythm
ABDOMEN/: soft, non-distended, non-tender to palpation, no rebound or guarding
EXTREMITIES: non-tender, no edema/swelling
NEUROLOGIC: awake and alert, moves all extremities
SKIN: warm
Patient is a 84-year-old woman presenting to the emergency department with generally feeling unwell and confused. On arrival vitals unremarkable and exam is reassuring. Broad workup completed including CT scan of the head which is unremarkable.
Urine does appear infected. Will give antibiotics. Given patient's weakness patient will need admission.
Discharge Plan
Departure
Patient Disposition: Admit
Date of Disposition: 04/12/25
Time of Disposition: 13:16
Admit to: Med/Surg
Presentation/result/management discussed w/ accepting MD/DO: Hospitalist
Patient with high blood pressure during this ER visit?: No
Discharge Problem:
Urinary tract infection
Interventions
Interventions:
*Risk Screen - Suicide Last Done: 04/12/25 10:21
*General Assessment Last Done: 04/12/25 11:18
*Neglect/Abuse Screening Last Done: 04/12/25 11:18
*ED- Fall Risk Assessment Last Done: 04/12/25 10:49
*ED COVID-19 Vaccine History Last Done: 04/12/25 10:49
*ED Influenza Vaccine History Last Done: 04/12/25 10:49
ED- Pulmonary Assessment Last Done: 04/12/25 11:18
ED- Neurological Assessment Last Done: 04/12/25 10:57
ED- Cardiac Assessment Last Done: 04/12/25 11:18
ED Swallowing Screen Last Done: 04/12/25 15:20
[2025-04-12 11:22] LABS: Urine Character Slightly Cloudy (Clear)
[2025-04-12 11:36] LABS: Urine Squamous Cell 16-20 /LPF (Few); Urine Urothelial Cell 0-2 /LPF (FEW)
[2025-04-12 11:37] LABS: Urine White Cell 26-30 /HPF (0-5)
[2025-04-12 12:36] LABS: INR 1.78; PT 20.9 Sec (11.4-14.6)
[2025-04-12 12:37] LABS: ALT (SGPT) 36 U/L (0-35); AST (SGOT) 39 U/L (14-36); Albumin 4.0 g/dl (3.5-5.0); Alkaline Phosphatase 150 U/L (38-126); Blood Urea Nitrogen 24 mg/dl (7-17); Calcium 8.7 mg/dl (8.4-10.2); Carbon Dioxide 31 mmol/L (22-30); Chloride 102 mmol/L (98-107); Glucose 95 mg/dl (70-99); Potassium 4.1 mmol/L (3.5-5.1); Sodium 138 mmol/L (135-145); Total Protein 6.5 g/dl (6.3-8.2); eGFR > 60.00
[2025-04-12 12:42] LABS: Hematocrit 44.5 % (37.0-47.0); Hemoglobin 13.9 g/dL (12.0-16.0); Mean Corp Hgb Conc. 31.2 g/dL (33.0-37.0); Mean Corpuscular Volume 80.8 fL (81.0-99.0); Nucleated Red Blood Cells % 0.3 %; Platelet Count 205 10^3/uL (130-400); Red Cell Dist. Width 22.3 % (11.5-14.5)
[2025-04-12 12:54] LABS: Troponin I < 0.012 ng/ml
[2025-04-12] MEDS: ROCEPHIN 1000 MG IV (13:01)
--- NOTE | 2025-04-12 14:20 | W.PN.UPDATE ---
Update Note
Progress Note Update
This note serves as an addendum to the H&P by dance critic BRITNEY�
Magdalena [place]
HPI�
84F
- seen at ER:
for evaluation of confusion and general malaise
- Last known normal was 2 days ago
- she feels quite unwell and 'cannot function'.
ROS
Denies chest pain or dyspnea.
Denies any vomiting or diarrhea.
PHX:
HX CVA
Hyperlipidemia
Seizure history
Hypothyroidism.
Hyperlipidemia
HX DVT on Coumadin.
HX s/p TAVR in September 2024
Diverticulitis of sigmoid colon.
Right iliacus muscle hematoma secondary to supratherapeutic INR, resolved.
Hyponatremia.
Relevant VS
Pulse Resp BP Pulse Ox
63 10 127/56 95
04/12/25 13:15 04/12/25 13:15 04/12/25 13:08 04/12/25 13:15
PE
Gen: NAD
HEENT: anicteric
Neck: supple
Lungs: CTA
Cor: RRR S1 S2
Abdomen:�soft NT NG NRT
PALM GATHERER: AAO3 , LUExs ; chronic shoulder pain with FROM since TAVR
MS: no edema
Relevant Data
11/05/24 04/12/25 04/12/25
07:30 10:30 12:01
WBC 7.9
Hgb 13.9
Plt Count 205
INR 1.78
BUN 24 H
Creatinine 0.6
eGFR > 60.00
AST 57 H 39 H
ALT 54 H 36 H
Alkaline Phosphatase 137 H 150 H
Troponin I < 0.012
[id number] Pept 726
UA
04/12/25
11:15
Ur Occult Blood Reflex 3+ A
Urine Nitrite (Reflex) Positive A
Leukocyte Esterase Rfl 3+ A
Urine RBC 11-15 A
Urine WBC (Reflex) 26-30 A
Ur Squamous Epith Cells 16-20
Urine Bacteria (Reflex) Many A
HCT
No acute intracranial abnormality
03/23/25 Brain MRI w/wo
- No evidence of acute intracranial abnormality.
- By MRI, there is no evidence of encephalomalacia to suggest a focal area of old infarction.
- Mild to moderate diffuse atrophy in this 84-year-old patient.
- Mild to moderate T2 and FLAIR white matter hyperintensities, predominantly periventricular.
- Slight compression of the medulla by the superior vertebral arteries bilaterally. See above discussion.
- Degenerative changes in the cervical spine including kyphosis, and there appears to be slight compression of the anterior margin of the cervical spinal cord.
If there are clinical symptoms referable to the cervical spine and further imaging evaluation is desired, consideration for dedicated MRI of the cervical spine.
Last hospitalist admission: 04/05/2022 - 04/10/2022
DC DX
1. Diverticulitis of sigmoid colon.
2. Right iliacus muscle hematoma secondary to below.
3. Supratherapeutic INR, resolved.
4. Hyponatremia.
5. Prior history of deep vein thrombosis on Coumadin. Noted prior
hematoma after left inguinal hernia repair earlier this year.
6. Past medical history of cerebrovascular accident,
hyperlipidemia, seizure history, hypothyroidism.
ASSESSMENT & PLAN
Pending Rx reconciliation
AMS with abn UA; presumed acute infective encephalopathy due to possible UTI
- No prior Micro data
- UCx
- empiric IV CFTZ
- Fall precaution
Lt sided SHELTON
Associated postural dizziness
HX migraine
Recent MRI Brain report reviewed
- Migraine cocktails
- Ortho VSS
- Neuro consult
HX clotting disorder/DVT/PE
-INR 1.78
- daily INR with risk of drug interaction with ABx
- c/w warfarin
Known HX
CAD HX
HX CVA: on aspirin
Hyperlipidemia: on statin
Essential HTN: on atenolol
Seizure HX : on phenytoin
Hypothyroidism: on LT4
DVT Px: on chr warfarin
Full code
OBS MS
--- NOTE | 2025-04-12 14:26 | HPS.HSE ---
Family Physician
-
Family Physician: Kuldeep Weinstein
Chief Complaint
-
Left-sided headache, dizziness, hematuria x 1
History of Present Illness
84-year-old female complaining of confusion and general malaise over the past 2 days.
Past medical history severe aortic stenosis status post TAVR 10/24/2024, mild to moderate AI, mild to moderate TR, CAD 50% distal left main, 50-60% proximal RCA stenosis,, CVA/TIA 2022, left nephrectomy, HTN, HLD, hypothyroidism/thyroid nodule,
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
products, spina bifida history of left inguinal hernia repair complicated by hematoma and hematoma evacuation September 2021
Medical History
Past Medical History
Past Medical History: Reports Other
Additional Past Medical History:
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
Severe aortic stenosis status post TAVR 10/24/2024
mild to moderate AI, mild to moderate TR
CAD 50% distal left main, 50-60% proximal RCA stenosis
CVA/TIA
seizures last 06/21/2019
Left kidney repair age 68 [address] Mccormack-patient unclear what kind of surgery
HTN
HLD
Hypothyroidism/thyroid nodule
Chronic transaminitis
GERD esophagitis
Hiatal hernia, diverticulitis,
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
DVT with PE
Migraines
Fibromyalgia
OA
uterine CA
Spina bifida
history of left inguinal hernia repair complicated by hematoma and hematoma evacuation September 2021
Past Surgical History: Reports Other (Hysterectomy (w/BSO) ,left kidney surgery, right rotator cuff repair, bilateral lumpectomy, right knee surgery, abdominal hernia repair with mesh, left inguinal hernia with mesh), dental extractions)
Social History
Tobacco: Non-smoker
Alcohol: None
Drug: None
Personal:
Living: With Family
Family History
Family History: Not pertinent
Allergies / Home Medications
Allergies reflects when Allergies were last updated in [facility].
Home Medications with original date entered in [facility]
Allergy/Medication List:
Allergies:
Codeine: nausea
Epinephrine: syncope
Hydrocortisone: CORTIZONE-10,hives
Penicillin: hives
Benadryl: jittery
Cefuroxime: rash
hydroCHLOROthiazide: hyponatremia
contrast dye: GI upset, balance
Medications:
Acetaminophen 500 MG Tablet 1 tablet as needed Orally every 6 hrs ,prn
Atenolol 50 MG Tablet 1 tablet Orally Once a day
Biofreeze ,PRN
Cefuroxime Axetil 500 MG Tablet 1 tablet Orally every 12 hrs
Co Q 10 100 MG Capsule 2 capsules Orally Once a Day ,PRN
Estradiol 0.1 MG/GM Cream insert 1 gram Vaginal Two times a Week
Furosemide 20 MG Tablet 1 tablet Orally Once a day (edema/fluid build up)
Gas Relief(Simethicone) 80 MG Tablet Chewable 1 tablet after meals and at bedtime as needed Orally Four times a day , prn
Levothyroxine Sodium 112 MCG Tablet 1 tablet in the morning on an empty stomach Orally Once a day
Meclizine HCl 12.5 MG Tablet 1 tablet as needed for vertigo Orally Every 8 Hours , as needed
Multi For Her(Multiple Vitamins-Minerals) - Tablet as directed Orally
Pantoprazole Sodium 40 MG Tablet Delayed Release TAKE 1 TABLET BY MOUTH EVERY DAY 30 MINUTES BEFORE BREAKFAST As needed
Phenytoin Sodium Extended 100 MG Capsule TAKE 2 CAPSULES EVERY MORNING AND 3 CAPSULES BY MOUTH EVERY EVENING
Potassium 99 MG Tablet 1 tablet Orally Once a day
Rosuvastatin Calcium 40 MG Tablet 1 tablet Orally Once a day
Valsartan 80 MG Tablet 1 tablet Orally Once a day
Vitamin D3 50 MCG (1999) Tablet 1 tablet Orally Once a day
Warfarin Sodium 2 MG Tablet 2 tablets on friday/friday and 1 tablet all other days of the week Orally Once a day
Review of Systems
-
History Source: Patient and Family (Daughter at bedside)
A 12 point ROS was completed and negative except as noted: Yes
Constitutional: Denies Fever, Fatigue, Night Sweats or Chills
EENT: Reports Other (Dizziness, pressure behind left eye, left-sided headache); Denies Sore Throat
Respiratory: Denies Cough or Trouble Breathing
Cardiac: Denies Chest Pain, Diaphoresis, Palpitations or Syncope
Abdomen/GI: Denies Abdominal Pain, Nausea, Vomiting, Diarrhea, Constipated or Bloody Stools
: Reports Other (Spot of hematuria on maxi pad today); Denies Dysuria, Frequency, Flank Pain or Incontinence
Musculoskeletal: Denies Joint Pain or Edema
Skin: Denies Itching or Rash
Neurological: Reports Dizzy and Headache (Left-sided headache); Denies Weakness
Endocrine: Reports No Symptoms
Hematologic/Lymphatic: Reports No Symptoms
Psych: Reports Calm
Physical Exam
Vital Signs
Vital Signs
Pulse Resp BP Pulse Ox
63 10 127/56 95
04/12/25 13:15 04/12/25 13:15 04/12/25 13:08 04/12/25 13:15
Physical Exam
General: Pain (Left-sided headache); No Fever or Chills
HEENT: NormoCephalic, Anicteric, Moist mucous membranes, Atraumatic, PERRLA, [place] Conjunctivae, No Ptosis and Other (Chronic left-sided neck pain to left shoulder since September 2024)
Respiratory: Clear; No Wheezes or Rales
Cardiac: S1/S2, Regular Rhythm and Murmur (2/6 systolic murmur); No Rub, Gallop or Peripheral Edema
Breast: Deferred by me
GI: Soft, Non Tender, Non Distended, Normal Bowel Sounds and No Hepatosplenomegaly
Rectal: Deferred by Provider
Genito-urinary: Deferred by me
Musculoskeletal: No Clubbing, No Cyanosis and No Edema
Skin: Warm and Dry; No Rash
Neuro: AO x 3 (Speech is slow at baseline), No Motor Deficits, Nonfocal/grossly intact and Other (Chronic HABEMATOLEL); No Slurred Speech, Facial Droop, Tremors or Sedated
Psych: Calm
Laboratory Results
-
04/12/25 12:01
04/12/25 12:01
Laboratory Results
PT 20.9 Sec (11.4-14.6) H 04/12/25 10:30
INR 1.78 04/12/25 10:30
Total Bilirubin 0.3 mg/dl (0.2-1.3) 04/12/25 12:01
AST 39 U/L (14-36) H 04/12/25 12:01
ALT 36 U/L (0-35) H 04/12/25 12:01
Alkaline Phosphatase 150 U/L (38-126) H 04/12/25 12:01
Troponin I < 0.012 ng/ml 04/12/25 12:15
Data Reviewed
-
CT Scan: Report Reviewed by me
Lab Data: Labs Reviewed by me
Impression/Plan
-
Impression/plan:
Admit to MedSurg
#Left-sided headache with dizziness concern for migraine versus CVA/TIA/vertigo
#Recent CVA few months ago at [facility] with ongoing headaches since then
Orthostatic vitals
- Tylenol now and prn
-Consult neuro per neuro recommendations below
- 2 d echo
-check dilantin level
- cta head and neck
- Iv nss x 1 liter
MRI brain 03/23/2025 there is no evidence of encephalomalacia to suggest a focal area of old infarction.
Mild to moderate diffuse atrophy in this 84-year-old patient.
Mild to moderate T2 and FLAIR white matter hyperintensities, predominantly periventricular.
Slight compression of the medulla by the superior vertebral arteries bilaterally concern possible VBI compression syndrome
Degenerative changes in the cervical spine including kyphosis, and there appears to be slight compression of the anterior margin of the cervical spinal cord.
If there are clinical symptoms referrable to the cervical spine and further imaging evaluation is desired, consideration for dedicated MRI of the cervical spine.
#UTI with generalized weakness
Patient reports hematuria on maxi pad this a.m.
UA positive nitrates +3 leukocytes WBC many bacteria, squamous cells 16�20+3 blood
Follow urine culture
- IV Rocephin tolerated in the ER
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
#DVT/PE
INR 1.78
-Continue Coumadin 4 mg Friday, 2 mg Friday
Follow INR to dose Coumadin as we will be treating UTI with antibiotics
#Chronic transaminitis unclear
Follow CMP
#Caodaism does not want blood products
#Left kidney repair age [address] Mccormack-patient unclear what kind of surgery
# HTN
BP 127/56
Continue valsartan 160 mg daily, atenolol 50 mg every afternoon with hold parameters
#HLD
Continue Crestor
#Hypothyroidism/thyroid nodule
Continue levothyroxine 112 mcg p.o. daily
#Severe aortic stenosis status post TAVR 10/24/2024
#Mild to moderate AI, mild to moderate TR
#CAD 50% distal left main, 50-60% proximal RCA stenosis
-Continue aspirin, beta-dominga, statin
#CVA/TIA
# Seizures last 06/21/2019
-Continue Crestor 40 mg every afternoon, phenytoin 200 mg a.m., 300 mg at bedtime
-Continue aspirin 81 mg daily
#GERD esophagitis
#Hiatal hernia
# diverticulitis hx
- Continue Protonix 40 mg daily
Other PMH:
Migraines
Fibromyalgia
OA
uterine CA
Spina bifida history of left inguinal hernia repair complicated by hematoma and hematoma evacuation September 2021
DVT prophylaxis
Continue [employer] warfarin
Full code patient's daughter Lottie is power of exercise instruct
[2025-04-12] MEDS: TYLENOL 650 MG PO ×2 (15:20→21:37)
--- NOTE | 2025-04-12 16:56 | W.PN.UPDATE ---
Update Note
Progress Note Update
84-year-old female complaining of more frequent on and off reddish-brown shadows in the central vision is present when both eyes are open and when both individual eyes are closed. She states this has been on and off since yesterday but slightly
more frequent now she reports her headache is mild on the left side with some improvement with Tylenol. Prior to this she has had shooting bright lights across her eye with headaches since her TAVR in September. She complains of some nausea right now
which we will treat with IV Zofran. She has NIH of 0 she has chronic right knee pain with ambulatory dysfunction was due for surgery but not cleared by cardiology until TAVR was complete
[2025-04-12] MEDS: NSS 1000 IV (18:16)
[2025-04-12] MEDS: TENORMIN 50 MG PO (18:16)
[2025-04-12] MEDS: CRESTOR 40 MG PO (18:16)
[2025-04-12] MEDS: ZOFRAN 4 MG IV (18:17)
[2025-04-12] MEDS: COUMADIN 2 MG PO (18:20)
[2025-04-12] MEDS: DILANTIN 300 MG PO (21:37)
[2025-04-13 03:00] VITALS: BP 146/78
[2025-04-13 05:26] VITALS: BMI 21.3
[2025-04-13] MEDS: TYLENOL 650 MG PO ×2 (06:29→14:34)
[2025-04-13] MEDS: SYNTHROID 112 MCG PO (06:29)
[2025-04-13 07:53] VITALS: BP 183/81
[2025-04-13 08:39] LABS: INR 2.00; PT 23.2 Sec (11.4-14.6)
[2025-04-13 08:47] LABS: Hematocrit 47.1 % (37.0-47.0); Hemoglobin 14.0 g/dL (12.0-16.0); Mean Corp Hgb Conc. 29.7 g/dL (33.0-37.0); Mean Corpuscular Volume 85.2 fL (81.0-99.0); Red Cell Dist. Width 22.2 % (11.5-14.5)
[2025-04-13] MEDS: THERAGRAN 1 TABLET PO (08:56)
[2025-04-13] MEDS: DILANTIN 200 MG PO (08:56)
[2025-04-13] MEDS: PROTONIX 40 MG PO (08:56)
[2025-04-13] MEDS: VITAMIN D3 (cholecalciferol) 50 MCG PO (08:56)
[2025-04-13] MEDS: ASPIR LOW (ENTERIC COATED) 81 MG PO (08:56)
[2025-04-13] MEDS: DIOVAN 160 MG PO (08:56)
[2025-04-13 09:15] LABS: Absolute Neutrophils -Man Diff 5.3 10^3/uL (1.4-6.5); Anisocytosis 1+; Normal RBC Morphology No; Platelet Count 198 10^3/uL (130-400); Platelets Checked Yes; Polychromasia 1+
[2025-04-13 09:16] LABS: ALT (SGPT) 28 U/L (0-35); AST (SGOT) 30 U/L (14-36); Albumin 3.9 g/dl (3.5-5.0); Alkaline Phosphatase 165 U/L (38-126); Blood Urea Nitrogen 18 mg/dl (7-17); Calcium 9.0 mg/dl (8.4-10.2); Carbon Dioxide 28 mmol/L (22-30); Chloride 102 mmol/L (98-107); Estimated Creatinine Clearance 41 ml/min; Glucose 61 mg/dl (70-99); HDL Cholesterol 38 mg/dl; Hypochromasia 2+; LDL Cholesterol, Calculated 69 mg/dl; Magnesium 2.1 mg/dl (1.6-2.3); Ovalocytes 2+; Potassium 4.3 mmol/L (3.5-5.1); Sodium 138 mmol/L (135-145); Total Cells Counted 100; Total Protein 6.3 g/dl (6.3-8.2); Very Low Density Lipoprotein 32 mg/dl (0-30); eGFR > 60.00
[2025-04-13 09:47] LABS: Vitamin B12 748 pg/ml (239-931)
--- NOTE | 2025-04-13 09:51 | CON.NEURO4 ---
Consultation - Neurology 4
-
CONSULTING PHYSICIAN: Dr. Raffy White
REFERRING PHYSICIAN: Dr. Lin Iniguez
DICTATED BY: Dr. Raffy White
DATE/TIME OF REQUEST: 04/13/2025
DATE/TIME OF CONSULTATION: 04/13/2025
Reason for Consultation: Confusion, dizziness, left-sided headache
ASSESSMENT AND PLAN:
The patient's mental status has improved significantly and she is almost back to her baseline. She is able to communicate without any difficulty today. The patient was found to have UTI and was treated for that. The plan is to continue current
medications including Dilantin and warfarin.
Follow up with neurology as an outpatient in about 3 weeks.
History of Present Illness:
The patient is an 84 years old female who presented with a complaint of confusion and general malaise over the past 2 days prior to admission. She has a past medical history of TAVR, coronary artery disease, hypertension, hyperlipidemia, chronic
embolism and thrombosis of the right tibial vein, DVT with pulmonary embolism and seizures. The patient was found to have UTI and was given IV Rocephin. She is also on Coumadin and Dilantin.
Review of Systems:
The patient denies dizziness, chest pain, shortness of breath, fever, chills, nausea and vomiting.
Neurologic Examination:
The patient is alert and oriented x 3,
The speech is clear,
The cranial nerves II to XII are grossly intact,
The patient has antigravity strength in bilateral upper and lower extremities,
There was no limb ataxia seen.
Vital Signs and Labs
-
Vital Signs and Labs:
Vital Signs
Temp Pulse Resp BP Pulse Ox
36.7 C 71 18 183/81 100
04/13/25 07:53 04/13/25 08:56 04/13/25 07:53 04/13/25 08:56 04/13/25 07:53
Lab Results
04/13/25 06:44
04/13/25 06:44
PT 23.2 Sec (11.4-14.6) H 04/13/25 06:44
INR 2.00 04/13/25 06:44
Sodium 138 mmol/L (135-145) 04/13/25 06:44
Potassium 4.3 mmol/L (3.5-5.1) 04/13/25 06:44
BUN 18 mg/dl (7-17) H 04/13/25 06:44
Glucose 61 mg/dl (70-99) L 04/13/25 06:44
Calcium 9.0 mg/dl (8.4-10.2) 04/13/25 06:44
LDL Cholesterol, Calc 69 mg/dl 04/13/25 06:44
Vitamin B12 748 pg/ml (239-931) 04/13/25 06:44
Medications
-
Active Medications
Generic Name Dose Route Start Last Admin
Trade Name Freq PRN Reason Stop Dose Admin
Acetaminophen 650 mg 04/12/25 17:11 04/13/25 06:29
Acetaminophen 325 Mg Tablet PO 05/10/25 17:10 650 mg
Q4HPRN PRN Administration
mild pain/SHELTON/temp> 100.4F
Aspirin 81 mg 04/13/25 08:00 04/13/25 08:56
Aspirin 81 Mg (Enteric Coated) Tablet PO 05/11/25 07:59 81 mg
DAILY SPENCER Administration
Atenolol 50 mg 04/12/25 18:00 04/12/25 18:16
Atenolol 50 Mg Tablet PO 05/10/25 17:59 50 mg
QPM SPENCER Administration
Ceftriaxone Sodium 1,000 mg 04/13/25 14:00
Ceftriaxone 1000 Mg / 10 Ml Vial IV
Q24H SPENCER
Cholecalciferol 50 mcg 04/13/25 08:00 04/13/25 08:56
Cholecalciferol (Vitamin D3) 50 Mcg Tablet (2,000 Units) PO 05/11/25 07:59 50 mcg
DAILY SPENCER Administration
Levothyroxine Sodium 112 mcg 04/13/25 06:00 04/13/25 06:29
Levothyroxine 112 Mcg Tablet PO 05/11/25 05:59 112 mcg
DAILY @ 0600 SPENCER Administration
Multivitamins Therapeutic 1 tablet 04/13/25 08:00 04/13/25 08:56
Multivitamin Tablet PO 05/11/25 07:59 1 tablet
DAILY SPENCER Administration
Ondansetron HCl 4 mg 04/12/25 16:56
Ondansetron 4 Mg/2 Ml Vial IV 05/10/25 16:55
Q6HPRN PRN
NAUSEA/VOMITING
Pantoprazole Sodium 40 mg 04/13/25 08:00 04/13/25 08:56
Pantoprazole 40 Mg Delayed Release Tablet PO 05/11/25 07:59 40 mg
DAILY SPENCER Administration
Phenytoin 300 mg 04/12/25 22:00 04/12/25 21:37
Phenytoin Sodium Extended 100 Mg Capsule PO 05/10/25 21:59 300 mg
HS SPENCER Administration
Phenytoin 200 mg 04/13/25 08:00 04/13/25 08:56
Phenytoin Sodium Extended 100 Mg Capsule PO 05/11/25 07:59 200 mg
DAILY SPENCER Administration
Rosuvastatin Calcium 40 mg 04/12/25 18:00 04/12/25 18:16
Rosuvastatin (Crestor) 20 Mg Tablet PO 05/10/25 17:59 40 mg
QPM SPENCER Administration
Sodium Chloride 0 flush 04/12/25 18:00
Sodium Chloride 0.9% (Flush) Syringe IV 05/10/25 17:59
PER PROTOCOL SPENCER
Sterile Water 10 ml 04/13/25 14:00
Sterile Water For Injection 10 Ml Vial IV 05/11/25 13:59
Q24H SPENCER
Valsartan 160 mg 04/13/25 08:00 04/13/25 08:56
Valsartan 160 Mg Tablet PO 05/11/25 07:59 160 mg
DAILY SPENCER Administration
Warfarin Sodium 4 mg 04/13/25 19:00
Warfarin 2 Mg Tablet PO 04/18/25 18:59
MOWEFR@1899 SPENCER
Warfarin Sodium 2 mg 04/12/25 19:00 04/12/25 18:20
Warfarin 2 Mg Tablet PO 04/17/25 18:59 2 mg
SUTUTHSA@1899 [facility] Administration
Home Medications
�Medication �Instructions �Recorded
aspirin 81 mg tablet,delayed 81 mg PO DAILY Blood clot 09/04/20
release prevention/tx
levothyroxine 112 mcg tablet 112 mcg PO DAILY Thyroid 09/04/20
rosuvastatin 40 mg tablet (Crestor) 40 mg PO QPM High cholesterol 09/04/20
atenolol 50 mg tablet 50 mg PO QPM Heart 11/23/20
disease/condition
multivitamin with folic acid 400 1 tab PO DAILY Supplement 05/01/21
mcg tablet (Tab-A-Anjel)
warfarin 2 mg tablet (Jantoven) 2 mg PO SUTUTHSA@1899 Blood clot 05/01/21
prevention/tx
cholecalciferol (vitamin D3) 50 50 mcg PO DAILY Supplement ##0 10/09/21
mcg (2,000 unit) tablet (Vitamin
D3)
pantoprazole 40 mg tablet,delayed 40 mg PO DAILY Gastrointestinal 10/09/21
release issue
furosemide 20 mg tablet 20 mg PO DAILY PRN fluid retention 10/14/24
warfarin 2 mg tablet 4 mg PO MOWEFR@190 Blood Clot 10/14/24
Prevention/Tx
phenytoin sodium extended 100 mg 200 mg (2 x 100 mg) PO DAILY 10/22/24
capsule Seizures #0 caps
phenytoin sodium extended 300 mg 300 mg PO HS seizures #0 caps 10/22/24
capsule
potassium 99 mg tablet 99 mg PO DAILY Electrolyte 04/12/25
Repletion
valsartan 160 mg tablet 160 mg PO DAILY Blood Pressure 04/12/25
--- NOTE | 2025-04-13 10:07 | W.PN.HOSP.TC ---
Today's Communication/Plan
-
dc if ok with neurology
Assessment / Plan
Assessment / Plan
Physical Exam
General: comfortable,No Fever or Chills
HEENT: Normocephalic, Anicteric, Moist mucous membranes, Atraumatic, PERRLA, [place] Conjunctivae, No Ptosis.
Respiratory: Clear; No Wheezes or Rales
Cardiac: S1/S2, Regular Rhythm, systolic murmur
GI: Soft, Non Tender, Non Distended, Normal Bowel Sounds
Rectal: no bleeding
Genito-urinary: No [place]
Musculoskeletal: No Clubbing, No Cyanosis and No Edema
Skin: Warm and Dry; No Rash
Neuro: AO x 3 (Speech is slow at baseline), No Motor Deficits, Nonfocal/grossly intact and Other (Chronic [place]); No Slurred Speech, Facial Droop, Tremors or Sedated
Psych: Calm
Left-sided headache with dizziness concern for migraine or TIA
#Recent CVA few months ago at [facility] with ongoing headaches since then
Negative orthostatic. She is back to normal. Seen by neurology: The patient was found to have UTI and was treated for that. The plan is to continue current medications including Dilantin and warfarin.
# #UTI with generalized weakness
No signs of systemic involvement. No leukocytosis. No fever. No dysuria. Could be colonization. Will treat empirically with oral antibiotic. Patient and daughter aware that culture is pending and we might call to change antibiotic after
discharge.
Total discharge time spent to see the patient, examined the patient, review data and lab result, discuss discharge plan with patient, daughter, neurology, nursing staff around 69 minutes
Anticipated Discharge: Today
Subjective/Interval History
-
Date of Service: April 13, 2025
She is feeling back to normal
no blurred vision
no headache
Objective Data
-
Labs:
Laboratory Results
04/13/25
06:44
WBC 7.4
Hgb 14.0
Hct 47.1 H
Plt Count 198
PT 23.2 H
INR 2.00
Sodium 138
Potassium 4.3
Chloride 102
Carbon Dioxide 28
BUN 18 H
Creatinine 0.7
Glucose 61 L
Calcium 9.0
Total Bilirubin 0.5
AST 30
ALT 28
Alkaline Phosphatase 165 H
Vital Signs:
Vital Signs
Temp Pulse Resp BP Pulse Ox
98.1 F 71 18 183/81 100
04/13/25 07:53 04/13/25 08:56 04/13/25 07:53 04/13/25 08:56 04/13/25 07:53
[2025-04-13 10:52] VITALS: BP 125/76; PULSE 72; O2SAT 95
[2025-04-13 11:00] VITALS: BP 126/71; BP 130/69; BP 138/81; PULSE 68; PULSE 73; PULSE 76
[2025-04-13] MEDS: STERILE WATER FOR INJECTION 10 ML IV (13:13)
[2025-04-13] MEDS: ROCEPHIN 1000 MG IV (13:13)
--- NOTE | 2025-04-13 14:50 | CM ---
Patient will d/c home today. Patient seen bedside, initial assessment completed. Patient is a 84-year-old female complaining of confusion and general malaise over the past 2 days.
Patient resides w/ spouse and grandson in a single modular home, 4/5 steps to enter. Patient is independent w/ RW. Patient takes care of spouse and grandson. Additional grab bar and shower chair. Denies SNF, has [facility] hx.
Address, points of contact and insurance verified
PCP: Kuldeep Weinstein
Pharmacy: [facility]
Therapy recommending home health services. Patient would like to use [facility], referral placed in [facility]
IMM verbally reviewed, copy provided, copy on chart
[facility]

Plan: Home w/ [facility]
[2025-04-13 15:00] VITALS: BP 142/94
--- NOTE | 2025-04-13 15:27 | VNURNOTE ---
Addendum entered by Ayse Estevez RN 04/13/25 15:54:
Rec'ed update that [facility] can see pt next or . Spoke with pt again. Again offered a Friday visit w/[facility]. She again refused them, and stated she would wait till next week for [facility] services. Reviewed with her that DC orders are for
INR in 2-3 days. Patient stated she would get a ride, probably from her daughter, to the lab for INR draw. Hospitalist and [facility] Intake updated.
Original Note:
Home Health Liaison met with patient at bedside to discuss [facility] nurse/therapy, visits, schedule and homebound status. Patient is agreeable and understands that visits at home will be 2-3 x per week to assess and teach medical management. Patient
is aware that [facility] will contact them for start of care within a week after discharge from . Offered her [facility], who can see her Friday. Patient adamantly declined, insisting that she only wants [facility]. She stated she will
arrange to go to a lab herself for INR draws. [facility] V[facility] supervisor shellfish [employer] notified.
[facility] referral completed in [facility].
--- NOTE | 2025-04-14 07:30 | W.DCSUMMARY ---
Discharge Summary
Discharge Data
Date of Admission: 04/12/25
Date of Discharge: 04/13/25
-
Pending Results: No
Hospital Course
84 years old female presented with an episode of weakness and confusion. She did not have respiratory or gastrointestinal symptoms. She did not have fever or leukocytosis. Scan of the head and neck did not show acute findings. Urine test was
consistent with urinary tract infection. Patient was given antibiotic. Patient was evaluated by neurologist. Recommendation to continue home medications. It felt that episode could be induced by ongoing urine tract infection. Patient felt
better and back to normal. She remained hemodynamically stable. She was evaluated by physical therapy recommended home care services. Patient was discharged in a stable condition with a course of oral antibiotic.
Discharge Plan
-
Patient Disposition: Home with Home Care
Discharge Diagnosis/Procedures: You were seen by neurologist. No changes recommended to your Coumadin dosing.
- Possible UTI. You were given antibiotic. Urine culture will finalized in 2 to 3 days. We will call you if changes needed for the antibiotic.
- Monitor your INR while on antibiotic. Next INR check in 2-3 days
Diet: As tolerated
Referrals:
Kuldeep Weinstein MD [Family Provider, Internal Medicine]
Prescriptions:
New
cefuroxime axetil 500 mg tablet
500 mg PO BID Qty: 10 0RF
Rx Instructions:
Patient tolerated cephalosporins in the hospital.
Continued
aspirin 81 MG tablet,delayed release (DR/EC)
81 mg PO DAILY
levothyroxine 112 MCG tablet
112 mcg PO DAILY
rosuvastatin [Crestor] 40 MG tablet
40 mg PO QPM
atenolol 50 MG tablet
50 mg PO QPM
warfarin [Jantoven] 2 MG tablet
2 mg PO SUTUTHSA@1900
multivitamin with folic acid [Tab-A-Anjel] 1 TABLET tablet
1 tab PO DAILY
pantoprazole 40 MG tablet,delayed release (DR/EC)
40 mg PO DAILY
cholecalciferol (vitamin D3) [Vitamin D3] 50 mcg (2,000 unit) Tablet
50 mcg PO DAILY Qty: 0
warfarin 2 mg Tablet
4 mg PO MOWEFR@1900
furosemide 20 mg Tablet
20 mg PO DAILY PRN (Reason: fluid retention)
phenytoin sodium extended 300 mg Capsule
300 mg PO HS Qty: 0 0RF
phenytoin sodium extended 100 MG capsule
200 mg PO DAILY Qty: 0 0RF
potassium 99 mg Tablet
99 mg PO DAILY
valsartan 160 mg Tablet
160 mg PO DAILY
Discharge Orders:
Discharge Patient (As Directed); Ordered 04/13/25
Ordered By: Lin Iniguez
Discharge Date and Time
Discharge Date/Time: 04/13/25 16:43
Print Language: WOLOF
== END 2025-04-13 16:43 | disposition home health service (06) | DRG 690 ==
LOC: 4 WEST ACU 15:43
PROVIDERS: Clinical Nurse Specialist Family Health; Physician Assistant; ADMITTING PHYSICIAN Internal Medicine; ATTENDING PHYSICIAN Internal Medicine; EMERGENCY PHYSICIAN Student in an Organized Health Care Education/Training Program; FAMILY PHYSICIAN Internal Medicine Geriatric Medicine; OTHER PHYSICIAN Psychiatry & Neurology Neurology
DX: N39.0 Urinary tract infection, site not specified (principal); I69.354 Hemiplegia and hemiparesis following cerebral infarction affecting left non-dominant side; G93.49 Other encephalopathy; I82.541 Chronic embolism and thrombosis of right tibial vein; D68.9 Coagulation defect, unspecified; Z79.890 Hormone replacement therapy; Z79.82 Long term (current) use of aspirin; Z79.899 Other long term (current) drug therapy; Z79.01 Long term (current) use of anticoagulants; Z85.42 Personal history of malignant neoplasm of other parts of uterus; Z86.711 Personal history of pulmonary embolism; Z90.5 Acquired absence of kidney; Z90.710 Acquired absence of both cervix and uterus; Z95.2 Presence of prosthetic heart valve; E03.9 Hypothyroidism, unspecified; E04.1 Nontoxic single thyroid nodule; E78.00 Pure hypercholesterolemia, unspecified; I10 Essential (primary) hypertension; I25.10 Atherosclerotic heart disease of native coronary artery without angina pectoris; K21.00 Gastro-esophageal reflux disease with esophagitis, without bleeding
CPT/HCPCS: 70450; 70496; 70498; 80053; 80061; 80185; 81003; 81015; 82607; 83735; 84484; 85025; 85610; 87077; 87086; 93005; 93306; 96374; 97162; 97166; 99285; Q9967

== ENCOUNTER → 2025-05-12 11:27 | Outpatient (REF) | payer MEDICARE, SELFPAY | LOC: RAD 11:27 | PROVIDERS: ATTENDING PHYSICIAN Nurse Practitioner Primary Care; FAMILY PHYSICIAN Internal Medicine Endocrinology, Diabetes & Metabolism; REFERRING PHYSICIAN Nurse Practitioner | DX: R74.8 Abnormal levels of other serum enzymes (principal); E04.2 Nontoxic multinodular goiter; N95.0 Postmenopausal bleeding | CPT/HCPCS: 76536; 76700; 76856 ==